=== PATIENT | male | born 1965 | race Caucasian/White ===

== ENCOUNTER 2020-08-21 10:49 | Inpatient (IN) | payer BC, SELFPAY ==
[2020-08-21] VITALS (39 sets, daily range): BP systolic 103–130; BP diastolic 68–85; PULSE 77–111; RESP 10–26; TEMP 36–38.2; O2SAT 89–96
--- NOTE | 2020-08-21 10:45 | RT.EKG_ITS ---
APPROVED REPORT Exam: Resting ECG Patient Location: E HR:108 bpm ECG Measurements Heart Rate [address] 152 P 31 QRSd 96 QRS -73 QT 320 T 35 QTc 431 Conclusion Sinus tachycardia...rate> 99 Inferior infarct, old...Q >35mS, II III aVF Physician: No stemi.
--- NOTE | 2020-08-21 11:06 | DI.CT_ITS ---
EXAM: CT CHEST PE CTA CLINICAL HISTORY: Covid Positive, SOB, Hypoxia. TECHNIQUE: Imaging Protocol: Axial CT angiography was performed with multi-slice acquisition and mu lti-planar and/or 3D reconstructions. CONTRAST MATERIAL: Intravenous: Omnipaque 350 Contrast volume:100 mL COMPARISON: No exams were available for comparison FINDINGS: Tracheobronchial tree: Patent where visualized. Pulmonary parenchyma: Bilateral multifocal ground-glass predominantly peripheral infiltrates are seen in the lungs. No architectural distortion. Pulmonary Arteries: No evidence of filling defect to suggest pulmonary emboli. Mediastinum and Makenna: No dominant adenopathy or fluid collection. Visualized thyroid gland: There are several pulmonary nodules. The largest is in the inferior left l obe and measures 1.4 cm with peripheral calcification. Pleura: No effusion or pneumothorax. Heart: The heart is not dilated. No coronary artery calcifications are seen. No pericardial effusion. Aorta: Thoracic aorta non-dilated. No evidence of dissection. Upper abdomen: Status post cholecystectomy. Soft tissues: Unremarkable. Bones: Normal. IMPRESSION: 1. No evidence of pulmonary embolism, thoracic aortic dissection or aneurysm. 2. Bilateral multifocal ground-glass predominantly peripheral infiltrates. Multifocal pneumonia shou ld be considered. Particularly atypical or viral infections including COVID-19. 3. Several thyroid nodules including a peripherally calcified 1.4 cm nodule in the left lobe. Noneme rgent thyroid ultrasound should be considered for further evaluation. 4. Results of this exam have been verbally communicated with provider. RADIATION DOSE DELIVERED: 473.81mGy.cm Total DLP DATA REPOSITORY: All CT scans at this facility are submitted to the National Radiology Data Registry (NRDR) Dose Index Registry (DIR) with the [employer] (ACR). RADIATION OPTIMIZATION: All CT scans at this facility use at least one of these dose optimization te chniques: automated exposure control; mA and/or kV adjustment per patient size (includes targeted exa ms where dose is matched to clinical indication); or iterative reconstruction.
--- NOTE | 2020-08-21 11:17 | ED.GENADUL_ITS ---
Discharge Plan Disposition Patient Disposition: [facility] INPATIENT Condition: Fair Discharge Details Clinical Impression: COVID-19 Admit Date/Time: 08/21/20 12:57 Admit Provider: Rivka Quintero Attending Provider: Rivka Quintero Primary Care Provider: Unknown,Unknown ED Provider: Arlet Mosley Discharge Data Discharge Date/Time-TO BE ENTERED AT DEPARTURE: 08/21/20 14:15 Medical Decision Making 54-year-old male presents the ER chief complaint of exertional dyspnea, increased weakness, fatigue he was diagnosed with coronavirus 1 week ago on Monday he reports feeling sick for approximately 5 days prior to that. On initial exam he is speaking in full sentences, O2 sat is 89% on room air he is tachycardic at 111, he denies any productive cough, he does endorse diarrhea and loss of appetite. He also endorses a loss of taste or smell. He lives with 2 roommates currently denies any recent travel. He denies any significant past medical history. He does have a surgical history of cholecystectomy. He is a non-smoker. He does endorse alcohol occasionally. CBC shows platelets at 119, lactate 1.7, sodium 134, potassium 3.2, chloride 90, anion gap 7.4, BUN 23, creatinine 1.3 GFR 7.53. Glucose 135, calcium 8.0, AST 148, ALT 96 alk phos is 60. Lactate dehydrogenase 635, C-reactive protein 3.19, albumin 3.3. Procalcitonin 0.1. At this time ferritin is pending. CT results as noted below. COMPARISON: No exams were available for comparison FINDINGS: Tracheobronchial tree: Patent where visualized. Pulmonary parenchyma: Bilateral multifocal ground-glass predominantly peripheral infiltrates are seen in the lungs. No architectural distortion. Pulmonary Arteries: No evidence of filling defect to suggest pulmonary emboli. Mediastinum and Makenna: No dominant adenopathy or fluid collection. Visualized thyroid gland: There are several pulmonary nodules. The largest is in the inferior left lobe and measures 1.4 cm with peripheral calcification. Pleura: No effusion or pneumothorax. Heart: The heart is not dilated. No coronary artery calcifications are seen. No pericardial effusion. Aorta: Thoracic aorta non-dilated. No evidence of dissection. Upper abdomen: Status post cholecystectomy. Soft tissues: Unremarkable. Bones: Normal. IMPRESSION: 1. No evidence of pulmonary embolism, thoracic aortic dissection or aneurysm. 2. Bilateral multifocal ground-glass predominantly peripheral infiltrates. Multifocal pneumonia should be considered. Particularly atypical or viral infections including COVID-19. 3. Several thyroid nodules including a peripherally calcified 1.4 cm nodule in the left lobe. Nonemergent thyroid ultrasound should be considered for further evaluation. 4. Results of this exam have been verbally communicated with provider. 10 mg dexamethasone given, 40 mEq potassium liquid p.o. given. Patient receiving normal saline. 1235: Spoke with Dr. Quintero hospitalist regarding patient admission she verbalized understanding and agrees states that patient for admission for COVID-19 at this time. Patient is on 2 L nasal cannula satting approximately 93%. Discussed plan of care with him, he verbalizes understanding and is in agreement with plan. Dr. Quintero recommend remdesivir, order placed. Patient remained hemodynamically stable and alert and oriented throughout stay. HPI General Mode of arrival: ambulatory . Date/Time Provider Initiated Documentation: 08/21/20 10:49 . Limitations to Documentation: no limitations . Information obtained by: patient . HPI Narrative: 54-year-old male presents the ER chief complaint of exertional dyspnea, increased weakness, fatigue he was diagnosed with coronavirus 1 week ago on Monday he reports feeling sick for approximately 5 days prior to that. On initial exam he is speaking in full sentences, O2 sat is 89% on room air he is tachycardic at 111, he denies any productive cough, he does endorse diarrhea and loss of appetite. He also endorses a loss of taste or smell. He lives with 2 roommates currently denies any recent travel. He denies any significant past medical history. He does have a surgical history of cholecystectomy. He is a non-smoker. He does endorse alcohol occasionally. Related Data Home Medications Medication Instructions Recorded Confirmed cholecalciferol (vitamin D3) 3,000 unit PO DAILY 01/02/14 08/21/20 ranitidine HCl [Zantac] 150 mg PO DAILY 01/02/14 08/21/20 vitamin A palmitate 10,000 units PO DAILY 01/02/14 08/21/20 zinc 50 mg PO DAILY 01/02/14 08/21/20 Allergies Allergy/AdvReac Type Severity Reaction Status Date / Time No Known Allergies Allergy Unverified 08/21/20 11:04 General Stated Complaint: GenMedical OWEN: 3 Review of Systems Narrative: Constitutional: well groomed, normal body habitus, appears c omfortable. Endorses weakness, fatigue. Reports positive weight loss decreased appetite. HEENT: Denies trauma, blurry vision, nasal discharge, sore throat, trouble swallowing. Positive headache. Chest: Denies palpitations, irregular rhythm, hypertension. Respiratory: Denies hemoptysis. Positive shortness of breath. GI: Denies abdominal pain, nausea, vomiting, constipation. Positive diarrhea. : Denies dysuria, hematuria, flank pain, rectal bleeding. Neuro: Denies dizziness, blurry vision, syncope,or facial numbness. Positive weakness. Hematologic: Denies easy bruising, intolerance to heat or cold, hair loss. [facility] Social History Smoking/Tobacco Use Status: Never Smoking risk assessment performed?: Yes Alcohol Intake: current Alcohol Intake frequency: a few times a week Drug use: Never Substance use type: does not use Do you feel safe at home: Yes Do you feel safe in your relationship?: Yes Exam Narrative Exam Narrative: Constitutional: Alert and oriented x3. Appears stated age. Normal body habitus. Head: Normocephalic, no trauma. Eyes: Pupils PERRLA, Red reflex noted, EOM's intact. Eyelids symmetrical without lesions, discharge, or swelling. ENT: Bilateral TM's WNL, External ear normal to inspection, no mastoid TTP, swelling, or erythema, Nasal turbinates WNL, no nasal discharge. Normal dentition, Posterior pharynx WNL, no exudate. Chest: Tachycardic 106- 111,, Normal S1, S2, no murmur auscultated, no rubs no gallops, distal pulses intact. Resp: Lungs diminished to auscultation bilaterally, no wheezes, rales, or rhonchi. Abdomen: Soft, nondistended nontender to palpation all 4 quadrants. Musculoskeletal: Normal gait, 5/5 strength to all four extremities. Skin: No suspicious rashes or lesions. Capillary refill less than 2 sec. Neurologic: Cranial nerves II-XII intact. Alert and oriented x 3. DTR's intact. Hematologic/Lymphatic: No ecchymosis, no lymphadenopathy. Course Vital Signs Vital signs: Vital Signs Temperature 36 C L 08/21/20 11:00 Pulse 111 H 08/21/20 11:00 Respiratory Rate 20 04/09/21 11:00 Blood Pressure 113/85 08/21/20 11:00 Pulse Oximetry 89 L 08/21/20 11:00 Temperature 36 C L 08/21/20 11:00 Pulse 111 H 08/21/20 11:00 Respiratory Rate 20 08/21/20 11:07 Respiratory Effort 08/21/20 11:07 Respiratory Depth Normal 08/21/20 11:07 Respiratory Pattern Normal 08/21/20 11:07 Blood Pressure 113/85 08/21/20 11:00 Blood Pressure Position Sitting 08/21/20 11:00 Pulse Oximetry 92 08/21/20 11:11 Oxygen Delivery Method Nasal Cannula 08/21/20 11:11 Oxygen Flow Rate 2 08/21/20 11:11 Lab/Test Results Lab/Test Results: 08/21/20 11:06 Blood Blood Culture - Pending 08/21/20 11:06 Blood Blood Culture - Pending
[2020-08-21] MEDS: Normal Saline 1,000 ML 1000 ML IV (11:20)
[2020-08-21 11:22] LABS: Lactate 1.7 mmol/L (0.6-1.4)
[2020-08-21 11:25] LABS: Abs Immature Grans 0.03 10^3/uL (0.0-0.06); Absolute Basophil Count 0.01 10^3/uL (0.0-0.2); Absolute Lymphocyte Count 0.79 10^3/uL (1.2-3.4); Absolute Monocyte Count 0.31 10^3/uL (0.1-0.8); Basophils % 0.2; HCT 47.6 % (40.0-50.0); HGB 16.4 g/dL (13.5-17.5); Immature Grans % 0.5; Lymphocytes % 12.3; MCH 31.3 pg (27.0-33.0); MCHC 34.5 % (32.0-36.0); MCV 90.8 fL (80-95); MPV 10.2 fL (8.0-11.0); Monocytes % 4.8; Neutrophils % 82.2; Nucleated RBC 0 %; Platelet Count 119 10^3/uL (130-400); RBC 5.24 10^6/uL (4.36-5.78); RDW 11.9 % (11.8-14.1); WBC 6.44 10^3/uL (4.4-10.8)
[2020-08-21 11:45] LABS: ALT 96 U/L (16-63); AST 148 U/L (15-37); Albumin 3.3 g/dL (3.4-5.0); Alkaline Phosphatase 60 U/L (46-116); Anion Gap 7.4 mmol/L (3-11); BUN 23 mg/dL (7-18); Bilirubin, Total 0.7 mg/dL (0.2-1.0); C-Reactive Protein 3.19 mg/dL (0.0-0.3); CO2 30.6 mmol/L (21.0-32.0); CREATININE 1.3 mg/dL (0.70-1.30); Chloride 96 mmol/L (98-107); Estimated GFR 57.53 (mL/min/1.73m2); Glucose 155 mg/dL (74-106); LDH 635 U/L (85-227); Potassium 3.2 mmol/L (3.5-5.1); Sodium 134 mmol/L (136-145); Total Protein 7.2 g/dL (6.4-8.2); Troponin I < 0.05 ng/mL (<0.06)
[2020-08-21] MEDS: Normal Saline - Diluent 50 ML VIAL IV (11:58)
[2020-08-21] MEDS: Normal Saline Flush 10 ML SYR IVP (11:58)
[2020-08-21 12:07] LABS: Procalcitonin 0.1 ng/mL
[2020-08-21] MEDS: Potassium Chloride Liquid 20 MEQ PKT 40 MEQ PO (12:49)
[2020-08-21] MEDS: Dexamethasone 10 MG/ML VIAL PO (12:49)
[2020-08-21] MEDS: REMDESIVIR 200 MG in Normal Saline 250 ML 250 MG IVPB (13:24)
[2020-08-21] MEDS: Cholecalciferol (Vitamin D3) 1,000 UNIT TAB 4000 UNITS PO (13:38)
[2020-08-21] MEDS: Ascorbic Acid 500 MG TAB 1000 MG PO ×2 (13:38→19:31)
[2020-08-21 13:39] LABS: Ferritin > 2000 ng/mL (26-388)
[2020-08-21] MEDS: Zinc Sulfate 220 MG TAB PO (13:39)
--- NOTE | 2020-08-21 13:45 | RT.EKG_ITS ---
APPROVED REPORT Exam: Resting ECG Patient Location: E HR:92 bpm ECG Measurements Heart Rate 92 AXIS FL 161 P 17 QRSd 93 QRS -62 QT 342 T 13 QTc 422 Conclusion Sinus rhythm...normal P axis, V-rate 60- 99 Inferior infarct, old...Q >35mS, II III aVF Physician: no stemi
[2020-08-21 13:58] LABS: NT-proBNP 26 pg/mL (<300)
[2020-08-21 14:00] LABS: Creatine Kinase 2693 U/L (39-308)
[2020-08-21 14:30] LABS: Troponin I < 0.05 ng/mL (<0.06)
[2020-08-21] MEDS: Enoxaparin 40 MG/0.4 ML SYR SC (15:24)
[2020-08-21] MEDS: Acetaminophen 325 MG TAB 650 MG PO (15:24)
[2020-08-21] MEDS: Ipratropium/Albuterol 4 GM 120 PUFF INH IH ×2 (17:28→19:31)
--- NOTE | 2020-08-21 17:53 | W.PM.HP.N ---
Date of service: 08/21/20 Time of Service: 16:45 Assessment and Plan Assessment and plan (1) Pneumonia due to COVID-19 virus: Status: Acute Assessment and plan: Admit to med surg. Continue decadron/remdesivir initiated in the ED in addition to vitamin C, D, zinc, melatonin, pepcid. Monitor O2 requirement. Atorvastatin contraindicated due to rhabdomyolysis. Consider increasing lovenox dose if Ddimer >2500 (ordered for am). (2) Hypoxia: Status: Acute Assessment and plan: Due to above - as above (3) Rhabdomyolysis: Status: Acute Assessment and plan: Due to COVID-19. Will monitor on IVF. Also monitor kidney function. (4) Dehydration: Status: Acute Assessment and plan: As above (5) Hypokalemia: Status: Acute Assessment and plan: Replete, recheck in am; check mag. (6) Thyroid nodule: Status: Acute Assessment and plan: F/u with US as outpatient (7) DVT prophylaxis: Status: Acute Assessment and plan: SC lovenox 40 mg Q24H (8) Discharge planning issues: Status: Acute Assessment and plan: Full code as verified during our conversation History of Present Illness History of Present Illness Chief Complaint: I just wasn't getting better. Narrative: Mr Adorno is a 54 year old male with no significant PMHx who was diagnosed with COVID-19 10 days ago who presented to [facility] ED today c/o malaise, fatigue, and weakness, to the point that he felt unsteady on his feet. He denied dizziness, endorsed a constant headache, endorsed changes to sense of taste, denies chest pain and shortness of breath, but did endorse a dry cough. He denies nausea, but has had diarrhea x 2 days. He denied body aches. He states his PO intake has been poor due to the changes in his taste. In the ED, his O2 saturation was 89% on room air. PE was ruled out. Hospitalists were asked to admit the patient for covid-19 pneumonia. He was initiated on remdesivir and decadron. Of note, the patient had elevated AST/ALT on his bloodwork with preserved alk phos, and his CPK is elevated, indicating rhabdomyolysis. Review of Systems All systems reviewed & are unremarkable except as noted in HPI and below [facility] Medical History (Updated 08/21/20 @ 18:12 by Rivka Quintero MD) No pertinent past medical history Surgical History (Updated 08/21/20 @ 17:59 by Rivka Quintero MD) S/P cholecystectomy Family History (Updated 08/21/20 @ 18:00 by Rivka Quintero MD) Maternal Aunt Cancer lung cancer in multiple maternal family members all of whom were smokers Father Heart disease Diabetes Hypertension Social History Smoking/Tobacco Use Status: Never Smoking risk assessment performed?: Yes Alcohol Intake: current Alcohol Intake frequency: a few times a week Drug use: Never Substance use type: does not use Do you feel safe at home: Yes Do you feel safe in your relationship?: Yes Meds Home Medications and Allergies Allergies Allergy/AdvReac Type Severity Reaction Status Date / Time No Known Allergies Allergy Unverified 08/21/20 11:04 Home Medications Medication Instructions Recorded Confirmed Type cholecalciferol (vitamin D3) 3,000 unit PO DAILY 01/02/14 08/21/20 History ranitidine HCl [Zantac] 150 mg PO DAILY 01/02/14 08/21/20 History vitamin A palmitate 10,000 units PO DAILY 01/02/14 08/21/20 History zinc 50 mg PO DAILY 01/02/14 08/21/20 History Exam Narrative Exam Narrative: General: Pleasant middle-aged male who looks very tired and dehydrated, A&Ox3, no evidence of dyspnea/tachypnea/cyanosis while laying on R side Neurological: A&Ox3, no focal deficits Psychiatric: Appropriate speech pattern/content Skin: Visible skin intact; dry HEENT: Atraumatic, normocephalic, EOMI, dry MM, no submandibular or cervical lymphadenopathy, no goiter or JVD Cardiovascular: RRR, no m/r/g Lungs: very diminished breath sounds B Gastrointestinal: soft, nontender, nondistended Genitourinary: deferred Extremities: no edema BLE's Results Imaging Additional studies: CTA chest: 1. No evidence of pulmonary embolism, thoracic aortic dissection or aneurysm. 2. Bilateral multifocal ground-glass predominantly peripheral infiltrates. Multifocal pneumonia should be considered. Particularly atypical or viral infections including COVID-19. 3. Several thyroid nodules including a peripherally calcified 1.4 cm nodule in the left lobe. Nonemergent thyroid ultrasound should be considered for further evaluation. Labs Result diagrams: 08/21/20 11:00 08/21/20 11:00 Labs: Laboratory Results - last 24 hr 08/21/20 08/21/20 08/21/20 11:00 11:00 11:00 WBC 6.44 RBC 5.24 Hgb 16.4 Hct 47.6 MCV 90.8 MCH 31.3 MCHC 34.5 RDW 11.9 Plt Count 119 L MPV 10.2 Immature Gran % 0.5 Neutrophils % 82.2 Lymphocytes % 12.3 Monocytes % 4.8 Eosinophils % 0.0 Basophils % 0.2 Nucleated RBC % 0 Absolute Neutrophils 5.30 Absolute Lymphocytes 0.79 L Absolute Monocytes 0.31 Absolute Eosinophils 0.00 Absolute Basophils 0.01 VBG Lactate 1.7 H Sodium 134 L Potassium 3.2 L Chloride 96 L Carbon Dioxide 30.6 Anion Gap 7.4 BUN 23 H Creatinine 1.3 Estimated GFR/1.73 m2 57.53 Glucose 155 H Calcium 8.0 L Ferritin > 2000 H Total Bilirubin 0.7 AST 148 H ALT 96 H Alkaline Phosphatase 60 Lactate Dehydrogenase 635 H Creatine Kinase Troponin I < 0.05 C-Reactive Protein 3.19 H NT-Pro-B Natriuret Pep Total Protein 7.2 Albumin 3.3 L Procalcitonin 0.1 08/21/20 08/21/20 11:00 14:00 WBC RBC Hgb Hct MCV MCH MCHC RDW Plt Count MPV Immature Gran % Neutrophils % Lymphocytes % Monocytes % Eosinophils % Basophils % Nucleated RBC % Absolute Neutrophils Absolute Lymphocytes Absolute Monocytes Absolute Eosinophils Absolute Basophils VBG Lactate Sodium Potassium Chloride Carbon Dioxide Anion Gap BUN Creatinine Estimated GFR/1.73 m2 Glucose Calcium Ferritin Total Bilirubin AST ALT Alkaline Phosphatase Lactate Dehydrogenase Creatine Kinase 2693 H Troponin I < 0.05 C-Reactive Protein NT-Pro-B Natriuret Pep 26 Total Protein Albumin Procalcitonin Last Vital Signs Temp 38.2 C H 08/21/20 15:25 Pulse 90 08/21/20 15:25 Resp 22 08/21/20 15:25 BP 111/72 08/21/20 15:25 Pulse Ox 93 08/21/20 15:25 COVID-19 Screening Have you, or household traveled for leisure in last 14 days?: No Had IN PERSON contact w/suspected or confirmed C-19 person: Yes
[2020-08-21] MEDS: Normal Saline 1,000 ML 150 ML IV (18:20)
[2020-08-21] MEDS: Famotidine 20 MG TAB PO (19:31)
[2020-08-21] MEDS: Melatonin 3 MG TAB PO (21:23)
[2020-08-22] VITALS (13 sets, daily range): BP systolic 99–130; BP diastolic 64–85; PULSE 61–90; RESP 18–200; TEMP 36.3–37.1; O2SAT 91–94
[2020-08-22] MEDS: Acetaminophen 325 MG TAB 650 MG PO ×3 (00:47→23:04)
[2020-08-22] MEDS: Normal Saline 1,000 ML 150 ML IV ×4 (01:57→23:06)
[2020-08-22 07:19] LABS: Lactate 1.2 mmol/L (0.6-1.4)
[2020-08-22 07:29] LABS: Abs Immature Grans 0.02 10^3/uL (0.0-0.06); Absolute Lymphocyte Count 0.65 10^3/uL (1.2-3.4); Absolute Monocyte Count 0.42 10^3/uL (0.1-0.8); Absolute Neutrophil Count 5.07 10^3/uL (1.2-6.7); HCT 42.1 % (40.0-50.0); HGB 14.3 g/dL (13.5-17.5); Immature Grans % 0.3; Lymphocytes % 10.6; MCH 31.6 pg (27.0-33.0); MCV 93.1 fL (80-95); MPV 9.5 fL (8.0-11.0); Monocytes % 6.8; Neutrophils % 82.3; Nucleated RBC 0 %; Platelet Count 127 10^3/uL (130-400); RBC 4.52 10^6/uL (4.36-5.78); RDW 12.1 % (11.8-14.1); RDW-SD 42.1 fL; WBC 6.16 10^3/uL (4.4-10.8)
[2020-08-22 08:02] LABS: D-Dimer 1488 ng/mlFEU (<500)
[2020-08-22 08:15] LABS: ALT 85 U/L (16-63); AST 113 U/L (15-37); Albumin 2.7 g/dL (3.4-5.0); Alkaline Phosphatase 49 U/L (46-116); Anion Gap 3.3 mmol/L (3-11); BUN 21 mg/dL (7-18); Bilirubin, Direct 0.2 mg/dL (0.0-0.2); Bilirubin, Total 0.5 mg/dL (0.2-1.0); C-Reactive Protein 3.74 mg/dL (0.0-0.3); CO2 30.7 mmol/L (21.0-32.0); Calcium 7.9 mg/dL (8.5-10.1); Chloride 103 mmol/L (98-107); Glucose 165 mg/dL (74-106); Potassium 4.2 mmol/L (3.5-5.1); Sodium 137 mmol/L (136-145); Total Protein 6.2 g/dL (6.4-8.2); Troponin I < 0.05 ng/mL (<0.06)
[2020-08-22 08:17] LABS: Creatine Kinase 2285 U/L (39-308); Ferritin 1792 ng/mL (26-388)
[2020-08-22] MEDS: Cholecalciferol (Vitamin D3) 1,000 UNIT TAB 4000 UNITS PO (08:28)
[2020-08-22] MEDS: Famotidine 20 MG TAB PO ×2 (08:28→20:33)
[2020-08-22] MEDS: Dexamethasone 10 MG/ML VIAL 6 MG IVP (08:29)
[2020-08-22] MEDS: Zinc Sulfate 220 MG TAB PO (08:29)
[2020-08-22] MEDS: Ascorbic Acid 500 MG TAB 1000 MG PO ×2 (08:29→20:33)
[2020-08-22] MEDS: Ipratropium/Albuterol 4 GM 120 PUFF INH IH ×4 (08:29→20:33)
--- NOTE | 2020-08-22 09:11 | PDOC.CMIN ---
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 He is independent at baseline in the community. CURRENT FUNCTIONAL STATUS:: Shefali is admitted to M/S covid unit and is being treated with decadron/remdesivir, vitamins and O2. Has patient been provided with info about the portal/API?: No Did the patient sign up for the portal?: No CODE STATUS:: Full Code INSURANCE COVERAGE / FINANCIAL ISSUES:: BC/BS. [facility] CURRENT HOME/COMMUNITY SERVICES/EQUIPMENT:: None currently. PRIMARY CARE PHYSICIAN:: None currently. POTENTIAL DISCHARGE NEEDS:: Follow up appointment, PCP attachment. PATIENT/FAMILY EDUCATION NEEDS:: Review discharge instructions, discuss Ask Me Three. ANTICIPATED BARRIERS TO DISCHARGE:: None identified. PLAN:: Anticipate Shefali will return home when ready per MD. He will be offered PCP attachment. Transport will depend on covid exposure considerations. CM continues to follow.
--- NOTE | 2020-08-22 11:35 | W.PM.HP.N ---
Date of service: 08/22/20 Time of Service: 11:35 [facility] Medical History (Updated 08/21/20 @ 18:12 by Rivka Quintero MD) No pertinent past medical history Surgical History (Updated 08/21/20 @ 17:59 by Rivka Quintero MD) S/P cholecystectomy Family History (Updated 08/21/20 @ 18:00 by Rivka Quintero MD) Maternal Aunt Cancer lung cancer in multiple maternal family members all of whom were smokers Father Heart disease Diabetes Hypertension Social History Smoking/Tobacco Use Status: Never Smoking risk assessment performed?: Yes Alcohol Intake: current Alcohol Intake frequency: a few times a week Drug use: Never Substance use type: does not use Do you feel safe at home: Yes Do you feel safe in your relationship?: Yes Meds Home Medications and Allergies Allergies Allergy/AdvReac Type Severity Reaction Status Date / Time No Known Allergies Allergy Unverified 08/21/20 11:04 Home Medications Medication Instructions Recorded Confirmed Type cholecalciferol (vitamin D3) 3,000 unit PO DAILY 01/02/14 08/21/20 History ranitidine HCl [Zantac] 150 mg PO DAILY 01/02/14 08/21/20 History vitamin A palmitate 10,000 units PO DAILY 01/02/14 08/21/20 History zinc 50 mg PO DAILY 01/02/14 08/21/20 History Results Labs Result diagrams: 08/22/20 07:10 08/22/20 07:10 Labs: Laboratory Results - last 24 hr 08/21/20 08/21/20 08/21/20 11:00 11:00 11:00 WBC RBC Hgb Hct MCV MCH MCHC RDW Plt Count MPV Immature Gran % Neutrophils % Lymphocytes % Monocytes % Eosinophils % Basophils % Nucleated RBC % Absolute Neutrophils Absolute Lymphocytes Absolute Monocytes Absolute Eosinophils Absolute Basophils D-Dimer VBG Lactate Sodium 134 L Potassium 3.2 L Chloride 96 L Carbon Dioxide 30.6 Anion Gap 7.4 BUN 23 H Creatinine 1.3 Estimated GFR/1.73 m2 57.53 Glucose 155 H Calcium 8.0 L Magnesium Ferritin > 2000 H Total Bilirubin 0.7 Conjugated Bilirubin AST 148 H ALT 96 H Alkaline Phosphatase 60 Lactate Dehydrogenase 635 H Creatine Kinase 2693 H Troponin I < 0.05 C-Reactive Protein 3.19 H NT-Pro-B Natriuret Pep 26 Total Protein 7.2 Albumin 3.3 L Procalcitonin 0.1 08/21/20 08/22/20 08/22/20 14:00 07:10 07:10 WBC RBC Hgb Hct MCV MCH MCHC RDW Plt Count MPV Immature Gran % Neutrophils % Lymphocytes % Monocytes % Eosinophils % Basophils % Nucleated RBC % Absolute Neutrophils Absolute Lymphocytes Absolute Monocytes Absolute Eosinophils Absolute Basophils D-Dimer VBG Lactate 1.2 Sodium 137 Potassium 4.2 D Chloride 103 Carbon Dioxide 30.7 Anion Gap 3.3 BUN 21 H Creatinine 1.0 Estimated GFR/1.73 m2 >= 60.00 Glucose 165 H Calcium 7.9 L Magnesium 2.0 Ferritin 1792 H Total Bilirubin 0.5 Conjugated Bilirubin 0.2 AST 113 H ALT 85 H Alkaline Phosphatase 49 Lactate Dehydrogenase Creatine Kinase 2285 H Troponin I < 0.05 < 0.05 C-Reactive Protein 3.74 H NT-Pro-B Natriuret Pep Total Protein 6.2 L Albumin 2.7 L Procalcitonin 08/22/20 08/22/20 07:10 07:10 WBC 6.16 RBC 4.52 Hgb 14.3 D Hct 42.1 MCV 93.1 MCH 31.6 MCHC 34.0 RDW 12.1 Plt Count 127 L MPV 9.5 Immature Gran % 0.3 Neutrophils % 82.3 Lymphocytes % 10.6 Monocytes % 6.8 Eosinophils % 0.0 Basophils % 0.0 Nucleated RBC % 0 Absolute Neutrophils 5.07 Absolute Lymphocytes 0.65 L Absolute Monocytes 0.42 Absolute Eosinophils 0.00 Absolute Basophils 0.00 D-Dimer 1488 H VBG Lactate Sodium Potassium Chloride Carbon Dioxide Anion Gap BUN Creatinine Estimated GFR/1.73 m2 Glucose Calcium Magnesium Ferritin Total Bilirubin Conjugated Bilirubin AST ALT Alkaline Phosphatase Lactate Dehydrogenase Creatine Kinase Troponin I C-Reactive Protein NT-Pro-B Natriuret Pep Total Protein Albumin Procalcitonin Last Vital Signs Temp 36.8 C 08/22/20 08:45 Pulse 90 08/22/20 08:45 Resp 20 08/22/20 08:45 BP 130/72 08/22/20 08:45 Pulse Ox 92 08/22/20 08:45 COVID-19 Screening Have you, or household traveled for leisure in last 14 days?: No Had IN PERSON contact w/suspected or confirmed C-19 person: Yes
--- NOTE | 2020-08-22 11:36 | W.PM.PROGNOT ---
Date of Service Date of service: 08/22/20 Time of Service: 11:36 Assessment and Plan Assessment and plan (1) Rhabdomyolysis: Status: Acute Assessment and plan: CK has improved. Cont IV hydration. Monitor Qualifiers: Rhabdomyolysis type: non-traumatic Qualified Code(s): M62.82 - Rhabdomyolysis (2) Pneumonia due to COVID-19 virus: Status: Acute Assessment and plan: Cont remdesivir and decadron. On Vitamin C, D, zinc, pepecid and melatonin. Now on 3 L supplemental O2 per NC; previously on 2L. Cont AC with DVT prophylaxis dosing of Lovenox; D-dimer 1488. (3) Hypoxia: Status: Acute Assessment and plan: D/T Covid Cont to monitor. (4) DVT prophylaxis: Status: Acute Assessment and plan: Lovenox 40 mg SC Q24H. Subjective Subjective Patient reports: no new complaints and afebrile; denies diarrhea, nausea and vomiting Interval history since last seen: He states he feels marginally better overall. Occasional cough w/o sputum. Exam Const General: cooperative and no acute distress Nutritional Appearance: average body habitus Orientation: alert and oriented x3 HENMT Head: normocephalic and atraumatic Eyes Sclera: sclerae normal Pupils: PERRL Resp Effort & Inspection: normal respiratory effort Auscultation: clear to auscultation bilaterally and diminished lung sounds Cardio Rate: regular rate Rhythm: regular rhythm Heart Sounds: S1 normal and S2 normal GI Palpation: soft and nontender Skin General skin exam: no rashes or lesions noted Neuro General: moves all extremities Cognition: normal cognition Speech: speech normal Extrem General: no pedal edema and no calf tenderness Objective Last Vital Signs Temp 36.8 C 08/22/20 08:45 Pulse 90 08/22/20 08:45 Resp 20 08/22/20 08:45 BP 130/72 08/22/20 08:45 Pulse Ox 92 08/22/20 08:45 Laboratory Results - last 24 hr 08/21/20 08/21/20 08/21/20 11:00 11:00 11:00 WBC RBC Hgb Hct MCV MCH MCHC RDW Plt Count MPV Immature Gran % Neutrophils % Lymphocytes % Monocytes % Eosinophils % Basophils % Nucleated RBC % Absolute Neutrophils Absolute Lymphocytes Absolute Monocytes Absolute Eosinophils Absolute Basophils D-Dimer VBG Lactate Sodium 134 L Potassium 3.2 L Chloride 96 L Carbon Dioxide 30.6 Anion Gap 7.4 BUN 23 H Creatinine 1.3 Estimated GFR/1.73 m2 57.53 Glucose 155 H Calcium 8.0 L Magnesium Ferritin > 2000 H Total Bilirubin 0.7 Conjugated Bilirubin AST 148 H ALT 96 H Alkaline Phosphatase 60 Lactate Dehydrogenase 635 H Creatine Kinase 2693 H Troponin I < 0.05 C-Reactive Protein 3.19 H NT-Pro-B Natriuret Pep 26 Total Protein 7.2 Albumin 3.3 L Procalcitonin 0.1 08/21/20 08/22/20 08/22/20 14:00 07:10 07:10 WBC RBC Hgb Hct MCV MCH MCHC RDW Plt Count MPV Immature Gran % Neutrophils % Lymphocytes % Monocytes % Eosinophils % Basophils % Nucleated RBC % Absolute Neutrophils Absolute Lymphocytes Absolute Monocytes Absolute Eosinophils Absolute Basophils D-Dimer VBG Lactate 1.2 Sodium 137 Potassium 4.2 D Chloride 103 Carbon Dioxide 30.7 Anion Gap 3.3 BUN 21 H Creatinine 1.0 Estimated GFR/1.73 m2 >= 60.00 Glucose 165 H Calcium 7.9 L Magnesium 2.0 Ferritin 1792 H Total Bilirubin 0.5 Conjugated Bilirubin 0.2 AST 113 H ALT 85 H Alkaline Phosphatase 49 Lactate Dehydrogenase Creatine Kinase 2285 H Troponin I < 0.05 < 0.05 C-Reactive Protein 3.74 H NT-Pro-B Natriuret Pep Total Protein 6.2 L Albumin 2.7 L Procalcitonin 08/22/20 08/22/20 07:10 07:10 WBC 6.16 RBC 4.52 Hgb 14.3 D Hct 42.1 MCV 93.1 MCH 31.6 MCHC 34.0 RDW 12.1 Plt Count 127 L MPV 9.5 Immature Gran % 0.3 Neutrophils % 82.3 Lymphocytes % 10.6 Monocytes % 6.8 Eosinophils % 0.0 Basophils % 0.0 Nucleated RBC % 0 Absolute Neutrophils 5.07 Absolute Lymphocytes 0.65 L Absolute Monocytes 0.42 Absolute Eosinophils 0.00 Absolute Basophils 0.00 D-Dimer 1488 H VBG Lactate Sodium Potassium Chloride Carbon Dioxide Anion Gap BUN Creatinine Estimated GFR/1.73 m2 Glucose Calcium Magnesium Ferritin Total Bilirubin Conjugated Bilirubin AST ALT Alkaline Phosphatase Lactate Dehydrogenase Creatine Kinase Troponin I C-Reactive Protein NT-Pro-B Natriuret Pep Total Protein Albumin Procalcitonin
[2020-08-22] MEDS: Enoxaparin 40 MG/0.4 ML SYR SC (17:00)
[2020-08-22] MEDS: Melatonin 3 MG TAB PO (21:35)
[2020-08-23] VITALS (10 sets, daily range): BP systolic 108–130; BP diastolic 73–81; PULSE 53–85; RESP 16–20; TEMP 36.2–36.9; O2SAT 88–97
[2020-08-23] MEDS: Normal Saline 1,000 ML 150 ML IV ×3 (05:49→22:44)
[2020-08-23 07:06] LABS: Abs Immature Grans 0.07 10^3/uL (0.0-0.06); Absolute Lymphocyte Count 0.68 10^3/uL (1.2-3.4); Absolute Neutrophil Count 6.32 10^3/uL (1.2-6.7); HCT 40.2 % (40.0-50.0); HGB 13.6 g/dL (13.5-17.5); Immature Grans % 0.9; Lymphocytes % 8.9; MCH 31.7 pg (27.0-33.0); MCHC 33.8 % (32.0-36.0); MCV 93.7 fL (80-95); Monocytes % 7.8; Neutrophils % 82.4; Nucleated RBC 0 %; Platelet Count 146 10^3/uL (130-400); RBC 4.29 10^6/uL (4.36-5.78); RDW 12.2 % (11.8-14.1); RDW-SD 42.5 fL; WBC 7.67 10^3/uL (4.4-10.8)
[2020-08-23 07:17] LABS: ALT 82 U/L (16-63); AST 85 U/L (15-37); Albumin 2.5 g/dL (3.4-5.0); Alkaline Phosphatase 44 U/L (46-116); Anion Gap 6.1 mmol/L (3-11); BUN 20 mg/dL (7-18); Bilirubin, Total 0.4 mg/dL (0.2-1.0); CO2 28.9 mmol/L (21.0-32.0); CREATININE 0.9 mg/dL (0.70-1.30); Calcium 7.5 mg/dL (8.5-10.1); Chloride 107 mmol/L (98-107); Glucose 172 mg/dL (74-106); Potassium 4.2 mmol/L (3.5-5.1); Sodium 142 mmol/L (136-145); Total Protein 5.7 g/dL (6.4-8.2)
[2020-08-23 07:34] LABS: Creatine Kinase 1275 U/L (39-308)
[2020-08-23] MEDS: Ipratropium/Albuterol 4 GM 120 PUFF INH IH ×4 (08:05→20:37)
[2020-08-23] MEDS: Famotidine 20 MG TAB PO ×2 (08:43→20:37)
[2020-08-23] MEDS: Ascorbic Acid 500 MG TAB 1000 MG PO ×2 (08:43→20:36)
[2020-08-23] MEDS: Cholecalciferol (Vitamin D3) 1,000 UNIT TAB 4000 UNITS PO (08:43)
[2020-08-23] MEDS: Dexamethasone 10 MG/ML VIAL 6 MG IVP (08:43)
[2020-08-23] MEDS: Zinc Sulfate 220 MG TAB PO (08:44)
--- NOTE | 2020-08-23 10:50 | W.PM.PROGNOT ---
Date of Service Date of service: 08/23/20 Time of Service: 11:17 Assessment and Plan Assessment and plan (1) Rhabdomyolysis: Status: Acute Assessment and plan: CK improved. Decrease IV fluid rate. Qualifiers: Rhabdomyolysis type: non-traumatic Qualified Code(s): M62.82 - Rhabdomyolysis (2) Hypoxia: Status: Acute Assessment and plan: Secondary to Covid PNA Had been stable with O2 saturations in the low 90's on 2-3 leaders per NC. At 8:45 this AM, O2 saturations noted to be 88%; he had been up / showered and supplemental O2 rate had been lowered. Back to saturation of 94% on 3L. (3) Pneumonia due to COVID-19 virus: Status: Acute Assessment and plan: Cont Remdesivir and Decadron. Cont Vit D, C, zinc, pepcid, melatonin. Supplemental O2 (4) Discharge planning issues: Status: Acute Assessment and plan: Likely home when improving and stable. Subjective Subjective Patient reports: no new complaints, tolerating a regular diet (sense of taste mildly improved), shortness of breath (mild) and afebrile; denies diarrhea, nausea and vomiting Exam Const General: cooperative and no acute distress Nutritional Appearance: average body habitus Orientation: alert and oriented x3 Resp Effort & Inspection: normal respiratory effort Auscultation: clear to auscultation bilaterally Cardio Rate: regular rate Rhythm: regular rhythm Heart Sounds: S1 normal and S2 normal Neuro General: no focal motor deficits Cognition: normal cognition Speech: speech normal Extrem General: no pedal edema and no calf tenderness Psych Appearance: grossly normal Mental Status: mental status grossly normal Speech and Movement: speech and movement normal Affect: normal affect Objective Last Vital Signs Temp 36.4 C L 08/23/20 08:45 Pulse 77 08/23/20 08:45 Resp 20 08/23/20 08:45 BP 114/73 08/23/20 08:45 Pulse Ox 88 L 08/23/20 08:45 Laboratory Results - last 24 hr 08/23/20 08/23/20 08/23/20 06:38 06:38 06:38 WBC 7.67 RBC 4.29 L Hgb 13.6 Hct 40.2 MCV 93.7 MCH 31.7 MCHC 33.8 RDW 12.2 Plt Count 146 MPV 10.0 Immature Gran % 0.9 Neutrophils % 82.4 Lymphocytes % 8.9 Monocytes % 7.8 Eosinophils % 0.0 Basophils % 0.0 Nucleated RBC % 0 Absolute Neutrophils 6.32 Absolute Lymphocytes 0.68 L Absolute Monocytes 0.60 Absolute Eosinophils 0.00 Absolute Basophils 0.00 Sodium 142 Potassium 4.2 Chloride 107 Carbon Dioxide 28.9 Anion Gap 6.1 BUN 20 H Creatinine 0.9 Estimated GFR/1.73 m2 >= 60.00 Glucose 172 H Calcium 7.5 L Total Bilirubin 0.4 AST 85 H ALT 82 H Alkaline Phosphatase 44 L Creatine Kinase 1275 H Total Protein 5.7 L Albumin 2.5 L
--- NOTE | 2020-08-23 12:18 | PDOC.CMPRO ---
- If Service Date Differs Date of service: 08/23/20 Time of Service: 12:19 Care Management Progress Note S/O: Shefali remains on M/S in the Covid unit at this time. Per MD he is making improvements and will discharge to home when medically ready. CM continues to follow. A: 54 year old male admitted to [facility] 08/21/20 for Covid 19 Pnemonia with hypoxia, syncope P: Anticipate Shefali will return home when ready per MD. He will be offered PCP attachment. Transport will depend on covid exposure considerations. CM continues to follow.
[2020-08-23] MEDS: Enoxaparin 40 MG/0.4 ML SYR SC (17:22)
[2020-08-23] MEDS: Acetaminophen 325 MG TAB 650 MG PO (22:42)
[2020-08-23] MEDS: Melatonin 3 MG TAB PO (22:43)
[2020-08-24] VITALS (16 sets, daily range): BP systolic 116–144; BP diastolic 72–91; PULSE 58–79; RESP 12–28; TEMP 36.4–36.7; O2SAT 91–97
[2020-08-24] MEDS: Normal Saline 1,000 ML 100 ML IV (06:19)
[2020-08-24 07:25] LABS: ALT 142 U/L (16-63); AST 138 U/L (15-37); Albumin 2.5 g/dL (3.4-5.0); Alkaline Phosphatase 46 U/L (46-116); Anion Gap 6.3 mmol/L (3-11); BUN 20 mg/dL (7-18); Bilirubin, Total 0.5 mg/dL (0.2-1.0); C-Reactive Protein 0.88 mg/dL (0.0-0.3); CO2 28.7 mmol/L (21.0-32.0); CREATININE 0.9 mg/dL (0.70-1.30); Calcium 7.7 mg/dL (8.5-10.1); Chloride 108 mmol/L (98-107); Glucose 163 mg/dL (74-106); Potassium 4.4 mmol/L (3.5-5.1); Sodium 143 mmol/L (136-145); Total Protein 5.6 g/dL (6.4-8.2)
[2020-08-24] MEDS: Ipratropium/Albuterol 4 GM 120 PUFF INH IH ×4 (08:02→20:06)
[2020-08-24] MEDS: Famotidine 20 MG TAB PO ×2 (08:11→20:06)
[2020-08-24] MEDS: Acetaminophen 325 MG TAB 650 MG PO (08:11)
[2020-08-24] MEDS: Zinc Sulfate 220 MG TAB PO (08:11)
[2020-08-24] MEDS: Ascorbic Acid 500 MG TAB 1000 MG PO ×2 (08:11→20:06)
[2020-08-24] MEDS: Dexamethasone 10 MG/ML VIAL 6 MG IVP (08:11)
[2020-08-24] MEDS: Cholecalciferol (Vitamin D3) 1,000 UNIT TAB 4000 UNITS PO (08:11)
[2020-08-24] MEDS: Normal Saline Flush 10 ML SYR IVP ×2 (08:12→20:06)
[2020-08-24 08:51] LABS: Vitamin D 25 Total 12.4 ng/mL (30-100)
--- NOTE | 2020-08-24 09:09 | CMPROGNOTE_ITS ---
Care Management Progress Note S/O: Shefali remains on M/S in the Covid unit at this time. Per MD he is making improvements and will discharge to home when medically ready. CM continues to follow. A: 54 year old male admitted to [facility] 08/21/20 for Covid 19 Pnemonia with hypoxia, syncope P: Anticipate Shefali will return home when ready per MD. He will be offered PCP attachment. Transport will depend on covid exposure considerations. CM continues to follow.
--- NOTE | 2020-08-24 13:12 | W.PM.PROGNOT ---
Date of Service Date of service: 08/24/20 Time of Service: 09:18 Assessment and Plan Assessment and plan (1) DVT prophylaxis: Status: Acute Assessment and plan: Cont Lovenox SQ (2) Rhabdomyolysis: Status: Acute Assessment and plan: CK was trending downward. His oral fluid intake has improved. Decrease IV NS to 50ml/hr Qualifiers: Rhabdomyolysis type: non-traumatic Qualified Code(s): M62.82 - Rhabdomyolysis (3) Pneumonia due to COVID-19 virus: Status: Acute Assessment and plan: Cont Decadron and Remdesivir. Cont Vit D, C, zinc, pepcid, melatonin. Supplemental O2 needs improving; now on 1L NC Cont COVID precautions. Subjective Subjective Patient reports: no new complaints, feels better (marginally), shortness of breath (With ambulation, not at rest.), afebrile and other; denies diarrhea, nausea and vomiting Interval history since last seen: Appetite has marginally improved. Exam Narrative Exam Narrative: Sitting in chair. Const General: cooperative and no acute distress Nutritional Appearance: average body habitus Orientation: alert and oriented x3 Resp Effort & Inspection: normal respiratory effort Auscultation: clear to auscultation bilaterally Cardio Rate: regular rate Rhythm: regular rhythm Heart Sounds: S1 normal and S2 normal GI Palpation: soft and nontender Skin General skin exam: no rashes or lesions noted Extrem General: no clubbing, cyanosis or edema and no calf tenderness Objective Last Vital Signs Temp 36.6 C 08/24/20 12:06 Pulse 60 08/24/20 12:06 Resp 18 08/24/20 12:35 BP 137/84 08/24/20 12:06 Pulse Ox 94 08/24/20 12:44 Laboratory Results - last 24 hr 08/22/20 08/24/20 07:10 06:50 Sodium 143 Potassium 4.4 Chloride 108 H Carbon Dioxide 28.7 Anion Gap 6.3 BUN 20 H Creatinine 0.9 Estimated GFR/1.73 m2 >= 60.00 Glucose 163 H Calcium 7.7 L Total Bilirubin 0.5 AST 138 H ALT 142 H Alkaline Phosphatase 46 C-Reactive Protein 0.88 H Total Protein 5.6 L Albumin 2.5 L 25-OH Vitamin D Total 12.4 L
--- NOTE | 2020-08-24 15:27 | W.NUTRFU ---
Date of service: 08/24/20 Time of Service: 15:27 Nutritional Follow up NOTE: 54 year old male admitted with COVID positive PNA. Following regular meal plan with excellent intake. Not at nutritional risk. Will continue to follow. Time Spent in Nutritional Counseling and Treatment: 0
--- NOTE | 2020-08-24 15:45 | PHA.REVIEW ---
Pharmacy Admission Review - Admission Clinical Review (Last Updated 08/21/20 @ 17:59 by Rivka Quintero MD) Hypokalemia (Acute) Discharge planning issues (Acute) DVT prophylaxis (Acute) Thyroid nodule (Acute) Dehydration (Acute) Rhabdomyolysis (Acute) Hypoxia (Acute) Pneumonia due to COVID-19 virus (Acute) COVID-19 (Acute) No Known Allergies Allergy (Unverified 08/21/20 11:04) Height 6 ft 1 in Weight 92.986 kg - Renal Dosing Renal Dosing: BUN 20 mg/dL (7-18) H 08/24/20 06:50 Creatinine 0.9 mg/dL (0.70-1.30) 08/24/20 06:50 Medications needing adjustments: Reviewed (Crcl ~106 mL/min current meds okay) - Anticoagulation Anticoagulation: Hgb 13.6 g/dL (13.5-17.5) 08/23/20 06:38 Hct 40.2 % (40.0-50.0) 08/23/20 06:38 Plt Count 146 10^3/uL (130-400) 08/23/20 06:38 Creatinine 0.9 mg/dL (0.70-1.30) 08/24/20 06:50 DVT Prohphylaxis: Reviewed Medications: Enoxaparin Therapeutic Anticoagulation: N/A - Opiate Usage Evaluate Pain Scale/Pains Meds: N/A - Relevant Labs Sodium 143 mmol/L (136-145) 08/24/20 06:50 Potassium 4.4 mmol/L (3.5-5.1) 08/24/20 06:50 Chloride 108 mmol/L (98-107) H 08/24/20 06:50 Magnesium 2.0 mg/dL (1.8-2.4) 08/22/20 07:10 C-Reactive Protein 0.88 mg/dL (0.0-0.3) H 08/24/20 06:50 Electrolytes, C-Reactive P, ESR: Reviewed - DM Control DM Control: Glucose 163 mg/dL (74-106) H 08/24/20 06:50 Insulin Dosing: Intervened (BG has been elevated so far this admission, no A1c on file. Will mention to provider.) - Heart Failure/NC Heart Failure/NC: Troponin I < 0.05 ng/mL (<0.06) 08/22/20 07:10 NT-Pro-B Natriuret Pep 26 pg/mL (<300) 08/21/20 11:00 EF%, STEF's, B-Blockers, Diuretics: Reviewed - BP Control BP Control: Blood Pressure 137/84 Blood Pressure 133/83 Blood Pressure 122/77 If elevated: N/A - Qtc Review If Elevated: N/A (QTc 422 on admission) - IV to PO Switch IV Medications: Reviewed - Home Meds Home Med List reviewed: Reviewed Relevent Home Meds Not ordered & why?: ranitidine (withdrawn from [place] market), vitamin A palmiate - Current meds Current Medication Order Review: Reviewed (Continue to watch VS, BG, LFTs, and for med changes.)
[2020-08-24] MEDS: Enoxaparin 40 MG/0.4 ML SYR SC (17:03)
[2020-08-24] MEDS: Normal Saline 1,000 ML 75 ML IV (20:59)
[2020-08-24] MEDS: Melatonin 3 MG TAB PO (21:47)
[2020-08-25] VITALS (9 sets, daily range): BP systolic 116–138; BP diastolic 70–90; PULSE 45–85; RESP 13–20; TEMP 36.4–36.9; O2SAT 90–97
[2020-08-25] MEDS: Acetaminophen 325 MG TAB 650 MG PO ×2 (04:35→21:35)
[2020-08-25 07:28] LABS: HCT 40.3 % (40.0-50.0); HGB 13.7 g/dL (13.5-17.5); MCH 31.2 pg (27.0-33.0); MCV 91.8 fL (80-95); MPV 9.7 fL (8.0-11.0); Platelet Count 170 10^3/uL (130-400); RBC 4.39 10^6/uL (4.36-5.78); RDW 12.1 % (11.8-14.1); RDW-SD 41.2 fL; WBC 7.88 10^3/uL (4.4-10.8)
[2020-08-25] MEDS: Zinc Sulfate 220 MG TAB PO (08:18)
[2020-08-25] MEDS: Ascorbic Acid 500 MG TAB 1000 MG PO ×2 (08:18→19:25)
[2020-08-25] MEDS: Famotidine 20 MG TAB PO ×2 (08:18→19:25)
[2020-08-25] MEDS: Normal Saline Flush 10 ML SYR IVP (08:18)
[2020-08-25] MEDS: Dexamethasone 10 MG/ML VIAL 6 MG IVP (08:18)
[2020-08-25] MEDS: Cholecalciferol (Vitamin D3) 1,000 UNIT TAB 4000 UNITS PO (08:18)
[2020-08-25 10:13] LABS: ALT 248 U/L (16-63); AST 130 U/L (15-37); Albumin 2.6 g/dL (3.4-5.0); Alkaline Phosphatase 48 U/L (46-116); BUN 18 mg/dL (7-18); Bilirubin, Direct 0.2 mg/dL (0.0-0.2); Bilirubin, Total 0.6 mg/dL (0.2-1.0); C-Reactive Protein 0.54 mg/dL (0.0-0.3); Calcium 7.9 mg/dL (8.5-10.1); Chloride 108 mmol/L (98-107); Creatine Kinase 283 U/L (39-308); Glucose 170 mg/dL (74-106); Potassium 4.3 mmol/L (3.5-5.1); Sodium 141 mmol/L (136-145); Total Protein 5.6 g/dL (6.4-8.2)
[2020-08-25] MEDS: Ipratropium/Albuterol 4 GM 120 PUFF INH IH ×3 (10:27→19:25)
[2020-08-25 10:31] LABS: D-Dimer 654 ng/mlFEU (<500)
[2020-08-25 10:33] LABS: Procalcitonin < 0.1 ng/mL
--- NOTE | 2020-08-25 10:40 | CMPROGNOTE_ITS ---
- If Service Date Differs Date of service: 08/25/20 Time of Service: 10:40 Care Management Progress Note S/O: Shefali remains on M/S in the Covid unit at this time. He had been making improvements but today his oxygen requirements increased from 1L to 2L and per MD, he is reporting mental fog and purulent nasal secretions. He desats with activity per nursing and is also having some diarrhea today. CM attempted to reach Shefali by phone but was unsuccessful. CM continues to follow. A: 54 year old male admitted to [facility] 08/21/20 for Covid 19 Pnemonia with hypoxia, syncope P: Anticipate Shefali will return home when ready per MD. He will be offered PCP attachment. Transport will depend on covid exposure considerations. CM continues to follow and will support patient and assess for discharge planning concerns..
[2020-08-25 11:02] LABS: Ferritin 1238 ng/mL (26-388)
[2020-08-25 11:17] LABS: NT-proBNP 1482 pg/mL (<300)
[2020-08-25] MEDS: Furosemide 20 MG/2 ML VIAL IVP (11:55)
--- NOTE | 2020-08-25 16:29 | W.PM.PROGNOT ---
Date of Service Date of service: 08/25/20 Time of Service: 16:29 Assessment and Plan Assessment and plan (1) Pneumonia due to COVID-19 virus: Status: Acute Assessment and plan: Continue decadron/remdesivir, vitamin C, D, zinc, melatonin, pepcid. Monitor O2 requirement. Encourage IS. D/c IVF and start diuresis. (2) Hypoxia: Status: Acute Assessment and plan: Due to above - as above (3) Rhabdomyolysis: Status: Resolved Assessment and plan: D/c IVF. Qualifiers: Rhabdomyolysis type: non-traumatic Qualified Code(s): M62.82 - Rhabdomyolysis (4) Dehydration: Status: Resolved (5) Hypokalemia: Status: Resolved Assessment and plan: Recheck in am (6) Thyroid nodule: Status: Acute Assessment and plan: F/u with US as outpatient (7) DVT prophylaxis: Status: Acute Assessment and plan: SC lovenox 40 mg Q24H (8) Discharge planning issues: Status: Acute Assessment and plan: Full code Continues to require hospitalization Subjective Subjective Interval history since last seen: Mr Adorno does not feel any better today. He is requiring 2L of o2 today whereas yesterday he required 1 L. Nursing notes crackles. Denies dizziness, chest pain, nausea. Did have a little diarrhea today. Reports mental fog. Reports purulent nasal secretions (green/brown). Cough is nonproductive. Has been proning.He has been doing some IS, but I encouraged him to do it every commercial break. Exam Narrative Exam Narrative: General: Pleasant middle-aged male on NC @2L (continuous pulse ox at 92%), not in respiratory distress HEENT: EOMI, MMM Cardiovascular: RRR, no m/r/g Lungs: Diminished breath sounds on R; crackles through most of the left lung Gastrointestinal: soft, nontender, nondistended Extremities: trace edema BLE's Objective Last Vital Signs Temp 36.4 C L 08/25/20 11:56 Pulse 78 08/25/20 11:56 Resp 17 08/25/20 11:56 BP 120/84 08/25/20 11:56 Pulse Ox 90 L 08/25/20 11:56 Laboratory Results - last 24 hr 08/25/20 08/25/20 08/25/20 06:45 06:45 09:30 WBC 7.88 RBC 4.39 Hgb 13.7 Hct 40.3 MCV 91.8 MCH 31.2 MCHC 34.0 RDW 12.1 Plt Count 170 MPV 9.7 D-Dimer Sodium 141 Potassium 4.3 Chloride 108 H Carbon Dioxide 25.0 Anion Gap 8.0 BUN 18 Creatinine 1.0 Estimated GFR/1.73 m2 >= 60.00 Glucose 170 H Calcium 7.9 L Magnesium 2.0 Ferritin 1238 H Total Bilirubin 0.6 Conjugated Bilirubin 0.2 AST 130 H ALT 248 H Alkaline Phosphatase 48 Creatine Kinase 283 C-Reactive Protein 0.54 H NT-Pro-B Natriuret Pep 1482 H Total Protein 5.6 L Albumin 2.6 L Procalcitonin 08/25/20 08/25/20 09:30 09:30 WBC RBC Hgb Hct MCV MCH MCHC RDW Plt Count MPV D-Dimer 654 H Sodium Potassium Chloride Carbon Dioxide Anion Gap BUN Creatinine Estimated GFR/1.73 m2 Glucose Calcium Magnesium Ferritin Total Bilirubin Conjugated Bilirubin AST ALT Alkaline Phosphatase Creatine Kinase C-Reactive Protein NT-Pro-B Natriuret Pep Total Protein Albumin Procalcitonin < 0.1
[2020-08-25] MEDS: cefTRIAXone 1 GM/50 ML BAG IVPB (17:00)
[2020-08-25] MEDS: Enoxaparin 40 MG/0.4 ML SYR SC (17:00)
[2020-08-25] MEDS: DOXYCYCLINE 100 MG in Normal Saline 100 ML IVPB (17:42)
[2020-08-25] MEDS: Melatonin 3 MG TAB PO (21:35)
[2020-08-26] VITALS (9 sets, daily range): BP systolic 112–129; BP diastolic 72–80; PULSE 71–98; RESP 17–18; TEMP 36.3–36.8; O2SAT 92–94
[2020-08-26] MEDS: Acetaminophen 325 MG TAB 650 MG PO ×2 (03:03→22:13)
[2020-08-26] MEDS: DOXYCYCLINE 100 MG in Normal Saline 100 ML IVPB ×2 (05:48→17:50)
[2020-08-26 07:40] LABS: Absolute Basophil Count 0.01 10^3/uL (0.0-0.2); Absolute Eosinophil Count 0.01 10^3/uL (0.0-0.7); Absolute Lymphocyte Count 1.43 10^3/uL (1.2-3.4); Absolute Monocyte Count 0.84 10^3/uL (0.1-0.8); Absolute Neutrophil Count 5.19 10^3/uL (1.2-6.7); Basophils % 0.1; Eosinophils % 0.1; HCT 42.8 % (40.0-50.0); HGB 14.6 g/dL (13.5-17.5); Immature Grans % 1.3; Lymphocytes % 18.9; MCH 30.7 pg (27.0-33.0); MCHC 34.1 % (32.0-36.0); MCV 89.9 fL (80-95); MPV 9.7 fL (8.0-11.0); Monocytes % 11.1; Neutrophils % 68.5; Nucleated RBC 0 %; Platelet Count 199 10^3/uL (130-400); RBC 4.76 10^6/uL (4.36-5.78); RDW 12.2 % (11.8-14.1); RDW-SD 40.7 fL; WBC 7.58 10^3/uL (4.4-10.8)
[2020-08-26] MEDS: Ipratropium/Albuterol 4 GM 120 PUFF INH IH ×4 (07:53→19:20)
[2020-08-26] MEDS: Dexamethasone 10 MG/ML VIAL 6 MG IVP (07:53)
[2020-08-26] MEDS: Normal Saline Flush 10 ML SYR IVP ×2 (07:53→12:15)
[2020-08-26] MEDS: Ascorbic Acid 500 MG TAB 1000 MG PO ×2 (07:54→19:20)
[2020-08-26] MEDS: Famotidine 20 MG TAB PO ×2 (07:54→19:20)
[2020-08-26] MEDS: Furosemide 20 MG/2 ML VIAL IVP (07:54)
[2020-08-26] MEDS: Cholecalciferol (Vitamin D3) 1,000 UNIT TAB 4000 UNITS PO (07:54)
[2020-08-26] MEDS: Zinc Sulfate 220 MG TAB PO (07:54)
[2020-08-26 08:05] LABS: ALT 198 U/L (16-63); AST 56 U/L (15-37); Albumin 2.6 g/dL (3.4-5.0); Alkaline Phosphatase 50 U/L (46-116); Anion Gap 6.8 mmol/L (3-11); BUN 19 mg/dL (7-18); Bilirubin, Direct 0.2 mg/dL (0.0-0.2); Bilirubin, Total 0.6 mg/dL (0.2-1.0); C-Reactive Protein 0.63 mg/dL (0.0-0.3); CO2 28.2 mmol/L (21.0-32.0); CREATININE 0.9 mg/dL (0.70-1.30); Calcium 8.2 mg/dL (8.5-10.1); Chloride 105 mmol/L (98-107); Glucose 104 mg/dL (74-106); Magnesium 1.8 mg/dL (1.8-2.4); Sodium 140 mmol/L (136-145)
[2020-08-26 08:22] LABS: D-Dimer 638 ng/mlFEU (<500)
[2020-08-26 08:34] LABS: Ferritin 894 ng/mL (26-388)
--- NOTE | 2020-08-26 12:08 | RESPIRATORY ---
RT ambulated patient in order to monitor SpO2 with ambulation. Patient was ambulated for approximately ten minutes. During this time Patient's SpO2 did not go below 89% and for the majority of the time remained 91%.
--- NOTE | 2020-08-26 16:53 | CMPROGNOTE_ITS ---
- If Service Date Differs Date of service: 08/26/20 Time of Service: 16:53 Care Management Progress Note S/O: Shefali continues to be monitored at M/S level of care. Per report, his O2 needs have decreased, but he still requires hospitalization at this time. CM will attempt to contact him by phone. CM will continue to follow. A: 54 year old male admitted to [facility] 08/21/20 for Covid 19 Pnemonia with hypoxia, syncope P: Anticipate Shefali will return home when ready per MD. He will be offered PCP attachment. Transport will depend on covid exposure considerations. CM continues to follow and will support patient and assess for discharge planning concerns..
[2020-08-26] MEDS: cefTRIAXone 1 GM/50 ML BAG IVPB (17:02)
[2020-08-26] MEDS: Enoxaparin 40 MG/0.4 ML SYR SC (17:02)
--- NOTE | 2020-08-26 17:51 | W.PM.PROGNOT ---
Date of Service Date of service: 08/26/20 Time of Service: 16:40 Assessment and Plan Assessment and plan (1) Pneumonia due to COVID-19 virus: Status: Acute Assessment and plan: Continue decadron/remdesivir, vitamin C, D, zinc, melatonin, pepcid. Monitor O2 requirement. Encourage IS. Continue diuresis. (2) Hypoxia: Status: Acute Assessment and plan: Due to above - as above (3) Rhabdomyolysis: Status: Resolved Qualifiers: Rhabdomyolysis type: non-traumatic Qualified Code(s): M62.82 - Rhabdomyolysis (4) Dehydration: Status: Resolved Assessment and plan: As above (5) Hypokalemia: Status: Resolved Assessment and plan: Recheck in am (6) Thyroid nodule: Status: Acute Assessment and plan: F/u with US as outpatient (7) DVT prophylaxis: Status: Acute Assessment and plan: SC lovenox 40 mg Q24H (8) Discharge planning issues: Status: Acute Assessment and plan: Full code Continues to require hospitalization. We started the conversation about him going home on oxygen if his O2 requirement does not budge. Subjective Subjective Interval history since last seen: Mr Adorno states it's really hard for him to take deep breaths and to work with IS. I discussed how important it is to do it, however. He does not feel better today. Stools are getting more solid. Denies dizziness, chest pain, shortness of breath. Cough is somewhat better. Nasal secretions are clearing up. Exam Narrative Exam Narrative: General: Pleasant middle-aged male on NC @1.5L (continuous pulse ox at 93%), not in respiratory distress HEENT: EOMI, MMM Cardiovascular: RRR, no m/r/g Lungs: Diminished breath sounds on R; crackles through most of the left lung Gastrointestinal: soft, nontender, nondistended Extremities: trace edema BLE's Objective Last Vital Signs Temp 36.8 C 08/26/20 12:20 Pulse 93 H 08/26/20 12:20 Resp 18 08/26/20 12:20 BP 118/78 08/26/20 12:20 Pulse Ox 93 08/26/20 14:24 Laboratory Results - last 24 hr 08/26/20 08/26/20 08/26/20 07:12 07:12 07:12 WBC 7.58 RBC 4.76 Hgb 14.6 Hct 42.8 MCV 89.9 MCH 30.7 MCHC 34.1 RDW 12.2 Plt Count 199 MPV 9.7 Immature Gran % 1.3 Neutrophils % 68.5 Lymphocytes % 18.9 Monocytes % 11.1 Eosinophils % 0.1 Basophils % 0.1 Nucleated RBC % 0 Absolute Neutrophils 5.19 Absolute Lymphocytes 1.43 Absolute Monocytes 0.84 H Absolute Eosinophils 0.01 Absolute Basophils 0.01 D-Dimer 638 H Sodium 140 Potassium 4.0 Chloride 105 Carbon Dioxide 28.2 Anion Gap 6.8 BUN 19 H Creatinine 0.9 Estimated GFR/1.73 m2 >= 60.00 Glucose 104 D Calcium 8.2 L Magnesium 1.8 Ferritin 894 H Total Bilirubin 0.6 Conjugated Bilirubin 0.2 AST 56 H ALT 198 H Alkaline Phosphatase 50 C-Reactive Protein 0.63 H Total Protein 6.0 L Albumin 2.6 L
[2020-08-26] MEDS: Melatonin 3 MG TAB PO (22:13)
[2020-08-27] VITALS (8 sets, daily range): BP systolic 109–117; BP diastolic 72–84; PULSE 61–91; RESP 14–20; TEMP 36.4–37; O2SAT 91–96
[2020-08-27] MEDS: DOXYCYCLINE 100 MG in Normal Saline 100 ML IVPB ×2 (06:38→18:16)
[2020-08-27 07:39] LABS: Abs Immature Grans 0.18 10^3/uL (0.0-0.06); Absolute Basophil Count 0.01 10^3/uL (0.0-0.2); Absolute Eosinophil Count 0.02 10^3/uL (0.0-0.7); Absolute Lymphocyte Count 1.64 10^3/uL (1.2-3.4); Absolute Monocyte Count 0.78 10^3/uL (0.1-0.8); Absolute Neutrophil Count 4.52 10^3/uL (1.2-6.7); Basophils % 0.1; Eosinophils % 0.3; HCT 45.1 % (40.0-50.0); HGB 15.3 g/dL (13.5-17.5); Immature Grans % 2.5; Lymphocytes % 22.9; MCH 30.8 pg (27.0-33.0); MCHC 33.9 % (32.0-36.0); MCV 90.9 fL (80-95); MPV 9.5 fL (8.0-11.0); Monocytes % 10.9; Neutrophils % 63.3; Nucleated RBC 0 %; Platelet Count 242 10^3/uL (130-400); RBC 4.96 10^6/uL (4.36-5.78); RDW 12.3 % (11.8-14.1); RDW-SD 40.6 fL; WBC 7.15 10^3/uL (4.4-10.8)
[2020-08-27] MEDS: Cholecalciferol (Vitamin D3) 1,000 UNIT TAB 4000 UNITS PO (07:41)
[2020-08-27] MEDS: Zinc Sulfate 220 MG TAB PO (07:41)
[2020-08-27] MEDS: Dexamethasone 10 MG/ML VIAL 6 MG IVP (07:42)
[2020-08-27] MEDS: Ascorbic Acid 500 MG TAB 1000 MG PO ×2 (07:42→20:51)
[2020-08-27] MEDS: Furosemide 20 MG/2 ML VIAL IVP (07:42)
[2020-08-27] MEDS: Ipratropium/Albuterol 4 GM 120 PUFF INH IH ×4 (07:42→20:52)
[2020-08-27] MEDS: Famotidine 20 MG TAB PO ×2 (07:42→20:51)
[2020-08-27] MEDS: Normal Saline Flush 10 ML SYR IVP ×2 (07:44→16:46)
[2020-08-27 07:56] LABS: ALT 170 U/L (16-63); AST 36 U/L (15-37); Albumin 2.8 g/dL (3.4-5.0); Alkaline Phosphatase 50 U/L (46-116); Anion Gap 4.5 mmol/L (3-11); BUN 24 mg/dL (7-18); Bilirubin, Direct 0.2 mg/dL (0.0-0.2); Bilirubin, Total 0.6 mg/dL (0.2-1.0); C-Reactive Protein 0.41 mg/dL (0.0-0.3); CO2 32.5 mmol/L (21.0-32.0); CREATININE 1.1 mg/dL (0.70-1.30); Calcium 8.6 mg/dL (8.5-10.1); Chloride 102 mmol/L (98-107); Glucose 98 mg/dL (74-106); Magnesium 1.9 mg/dL (1.8-2.4); Potassium 4.4 mmol/L (3.5-5.1); Sodium 139 mmol/L (136-145); Total Protein 6.3 g/dL (6.4-8.2)
[2020-08-27 08:19] LABS: Ferritin 842 ng/mL (26-388)
[2020-08-27 08:23] LABS: D-Dimer 638 ng/mlFEU (<500)
[2020-08-27] MEDS: Normal Saline 500 ML 30 ML IV (16:43)
[2020-08-27] MEDS: Enoxaparin 40 MG/0.4 ML SYR SC (16:43)
[2020-08-27] MEDS: cefTRIAXone 1 GM/50 ML BAG IVPB (16:43)
--- NOTE | 2020-08-27 17:58 | PGE_ITS ---
Date of Service Date of service: 08/27/20 Time of Service: 17:58 Assessment and Plan Assessment and plan (1) Pneumonia due to COVID-19 virus: Status: Acute Assessment and plan: Continue decadron/remdesivir, vitamin C, D, zinc, melatonin, pepcid. Monitor O2 requirement. Encourage IS (we spoke at length about this today). Consider therapeutic anticoagulation. Continue diuresis. (2) Hypoxia: Status: Acute Assessment and plan: Due to above - as above (3) Rhabdomyolysis: Status: Resolved Assessment and plan: off IVF. Qualifiers: Rhabdomyolysis type: non-traumatic Qualified Code(s): M62.82 - Rhabdomyolysis (4) Dehydration: Status: Resolved Assessment and plan: As above (5) Hypokalemia: Status: Resolved Assessment and plan: Recheck in am (6) Thyroid nodule: Status: Acute Assessment and plan: F/u with US as outpatient (7) DVT prophylaxis: Status: Acute Assessment and plan: SC lovenox 40 mg Q24H (8) Discharge planning issues: Status: Acute Assessment and plan: Full code Continues to require hospitalization. The patient will possibly be discharged home on oxygen. Subjective Subjective Interval history since last seen: Mr Adorno feels better today. he took a shower. Denies dizziness, chest pain, shortness of breath, nausea, and diarrhea has resolved - his stools are now soft. Unfortunately, he is still requiring 2L of O2 to saturate >88%. His O2 sats are 92% while I am in the room with him. Exam Narrative Exam Narrative: General: Pleasant middle-aged male on NC 2L (continuous pulse ox at 92%), not in respiratory distress, looks better than yesterday, [place] HEENT: EOMI, MMM Cardiovascular: RRR, no m/r/g Lungs: Diminished breath sounds on R; very faint crackles auscultated today Gastrointestinal: soft, nontender, nondistended Extremities: trace edema BLE's Objective Last Vital Signs Temp 36.4 C L 08/27/20 16:34 Pulse 91 H 08/27/20 16:34 Resp 14 08/27/20 16:34 BP 117/84 08/27/20 16:34 Pulse Ox 91 L 08/27/20 16:39 Laboratory Results - last 24 hr 08/27/20 08/27/20 08/27/20 07:20 07:20 07:20 WBC 7.15 RBC 4.96 Hgb 15.3 Hct 45.1 MCV 90.9 MCH 30.8 MCHC 33.9 RDW 12.3 Plt Count 242 MPV 9.5 Immature Gran % 2.5 Neutrophils % 63.3 Lymphocytes % 22.9 Monocytes % 10.9 Eosinophils % 0.3 Basophils % 0.1 Nucleated RBC % 0 Absolute Neutrophils 4.52 Absolute Lymphocytes 1.64 Absolute Monocytes 0.78 Absolute Eosinophils 0.02 Absolute Basophils 0.01 D-Dimer 638 H Sodium 139 Potassium 4.4 Chloride 102 Carbon Dioxide 32.5 H Anion Gap 4.5 BUN 24 H Creatinine 1.1 Estimated GFR/1.73 m2 >= 60.00 Glucose 98 Calcium 8.6 Magnesium 1.9 Ferritin 842 H Total Bilirubin 0.6 Conjugated Bilirubin 0.2 AST 36 ALT 170 H Alkaline Phosphatase 50 C-Reactive Protein 0.41 H Total Protein 6.3 L Albumin 2.8 L
--- NOTE | 2020-08-27 18:54 | PDOC.CMPRO ---
- If Service Date Differs Date of service: 08/27/20 Time of Service: 18:54 Care Management Progress Note S/O: Shefali remains under precautions for Covid 19, being closely monitored. Per RT, he is still requiring 2L of O2, although he does not qualify for home O2. He had a shower today, which he was happy about, per RN. He is being treated with decadron/remdesivir, vitamin C, D and zinc. He continues to require hospitalization at this time due to his O2 requirements. CM will continue to follow. A: 54 year old male admitted to [facility] 08/21/20 for Covid 19 Pnemonia with hypoxia, syncope P: Anticipate Shefali will return home when ready per MD. He will be offered PCP attachment. Transport will depend on covid exposure considerations. CM continues to follow and will support patient and assess for discharge planning concerns.
[2020-08-27] MEDS: Melatonin 3 MG TAB PO (20:51)
[2020-08-27] MEDS: Acetaminophen 325 MG TAB 650 MG PO (20:51)
[2020-08-28] VITALS (8 sets, daily range): BP systolic 99–119; BP diastolic 61–84; PULSE 71–105; RESP 16–28; TEMP 36.3–36.5; O2SAT 88–95
--- NOTE | 2020-08-28 | DI.CT_ITS ---
EXAM: CT CHEST PE CTA CLINICAL HISTORY: R/O PE in setting of COVID with oxygen requirent. TECHNIQUE: Imaging Protocol: Axial CT angiography was performed with multi-slice acquisition and mu lti-planar and/or 3D reconstructions. CONTRAST MATERIAL: Intravenous: Visipaque 320 contrast volume:100 mL COMPARISON: CT CT CHEST PE CTA from 08/21/2020 FINDINGS: Tracheobronchial tree: Patent where visualized. Pulmonary parenchyma: There again seen bilateral predominantly peripheral ground-glass opacities in t he lungs. There has been slight progression of the infiltrates compared to the prior examination par ticularly in the right upper lobe. No architectural distortion. Pulmonary Arteries: No evidence of filling defect to suggest pulmonary emboli. Mediastinum and Makenna: No dominant adenopathy or fluid collection. Visualized thyroid gland: Stable thyroid nodules. Pleura: There do appear to be tiny bilateral pleural effusions. No pneumothorax. Heart: The heart is not dilated. No coronary artery calcifications are seen. No pericardial effusion. Aorta: Thoracic aorta non-dilated. No evidence of dissection. Upper abdomen: Status post cholecystectomy. Soft tissues: Unremarkable. Bones: No acute abnormality. IMPRESSION: 1. No evidence of pulmonary embolism, thoracic aortic dissection or aneurysm. 2. Bilateral ground-glass opacities. Slight progression of the infiltrates is seen in the right uppe r lobe. The pulmonary findings are consistent with the patient's known diagnosis of COVID- 19. RADIATION DOSE DELIVERED: 398.97mGy.cm Total DLP DATA REPOSITORY: All CT scans at this facility are submitted to the National Radiology Data Registry (NRDR) Dose Index Registry (DIR) with the [employer] (A[employer]). RADIATION OPTIMIZATION: All CT scans at this facility use at least one of these dose optimization te chniques: automated exposure control; mA and/or kV adjustment per patient size (includes targeted exa ms where dose is matched to clinical indication); or iterative reconstruction.
--- NOTE | 2020-08-28 | DI.US_ITS ---
EXAM: US EXTREMITY VENOUS BI CLINICAL HISTORY: r/o dvt with pain to ankle in setting of COVID. TECHNIQUE: Bilateral lower extremity venous ultrasound performed using grayscale, color-flow, and sp ectral Doppler analysis. COMPARISON: No exams were available for comparison FINDINGS: The bilateral common femoral, femoral and popliteal veins demonstrate normal compressibility, augment ation, and color Doppler. The posterior tibial veins are patent. The saphenofemoral junctions are unr emarkable. There is no evidence of a Siddiqi's cyst. The soft tissues are unremarkable. IMPRESSION: Right: Negative for DVT Left: Negative for DVT DATA REPOSITORY:
[2020-08-28] MEDS: Normal Saline Flush 10 ML SYR IVP ×3 (06:15→12:19)
[2020-08-28] MEDS: DOXYCYCLINE 100 MG in Normal Saline 100 ML IVPB (06:15)
[2020-08-28] MEDS: Normal Saline 500 ML 30 ML IV (06:16)
[2020-08-28] MEDS: Cholecalciferol (Vitamin D3) 1,000 UNIT TAB 4000 UNITS PO (08:53)
[2020-08-28] MEDS: Dexamethasone 10 MG/ML VIAL 6 MG IVP (08:53)
[2020-08-28] MEDS: Furosemide 20 MG/2 ML VIAL IVP (08:53)
[2020-08-28] MEDS: Zinc Sulfate 220 MG TAB PO (08:54)
[2020-08-28] MEDS: Famotidine 20 MG TAB PO (08:54)
[2020-08-28] MEDS: Ascorbic Acid 500 MG TAB 1000 MG PO (08:54)
[2020-08-28] MEDS: Ipratropium/Albuterol 4 GM 120 PUFF INH IH ×2 (08:56→11:05)
[2020-08-28] MEDS: Normal Saline - Diluent 50 ML VIAL IV (10:47)
[2020-08-28] MEDS: Enoxaparin 100 MG/ML SYR SC (10:57)
--- NOTE | 2020-08-28 13:59 | DSE_ITS ---
Date of service: 08/28/20 Time of Service: 13:59 DS: Diagnosis Discharge Diagnosis (1) Pneumonia due to COVID-19 virus: Start date: 08/28/20 Start time: 14:00 Status: Acute Asessment and Plan: Patient is day 7 of COVID 19 with improving symptoms. He is requiring 1 Liter oxygen with ambulation. Exercise oximetry is 88 with ambulation, he does increase to 91% with 1 L. He has been on decadron/remdesivir, vit c, d zinc, melationin and pepcid. D dimer initially elevated however it has leveled out CTA negative for PE Bilat u/s negative for DVT. Will do short steroid taper, continue vitamin D 4,000 and melatonin Follow up with PCP when off of quarentine He will need a pulse ox to monitor oxygen level and follow up if sat less than 89% (2) Hypoxia: Start date: 08/28/20 Start time: 14:17 Status: Acute Asessment and Plan: Improving, as above. (3) Rhabdomyolysis: Start date: 08/28/20 Start time: 14:17 Status: Resolved Asessment and Plan: He was on IVF (4) Dehydration: Start date: 08/28/20 Start time: 14:17 Status: Resolved Asessment and Plan: Received IVF (5) Hypokalemia: Start date: 08/28/20 Start time: 14:17 Status: Resolved Asessment and Plan: Resolved with repletion (6) Thyroid nodule: Start date: 08/28/20 Start time: 14:18 Status: Acute Asessment and Plan: Several thyroid nodules including a peripherally calcified 1.4 cm nodule in the left lobe. Nonemergent thyroid ultrasound should be considered for further evaluation. He will need further work up as an outpatient this can be done by his PCP above case discussed with Dr. Quintero. Discharge Plan Disposition Patient Disposition: HOME Condition: Improving Discharge Details Reason For Visit: COVID 19 PNEMONIA WITH HYPOXIA Admit Date/Time: 08/21/20 12:57 Admit Provider: Rivka Quintero Attending Provider: Rivka Quintero Primary Care Provider: Unknown,Unknown Hospital Course Hospital Course: Mr Adorno is a 54 year old male with no significant PMHx who was diagnosed with COVID-19 10 days prior to admission was admitted to [facility] with c/o malaise, fatigue, and weakness, to the point that he felt unsteady on his feet. He denied dizziness, endorsed a constant headache, endorsed changes to sense of taste, denied chest pain and shortness of breath, but did endorse a dry cough. He denied nausea, but had diarrhea x 2 days. He denied body aches. He states his PO intake has been poor due to the changes in his taste. In the ED, his O2 saturation was 89% on room air. PE was ruled out. Hospitalists were asked to admit the patient for covid-19 pneumonia. He was initiated on remdesivir and decadron. Of note, the patient had elevated AST/ALT on his blood work with preserved alk phos, and his CPK is elevated, indicating rhabdomyolysis. He did receive IVF. Over course of treatment he was placed on decadron, vitamin D, zinc, melatonin, pepci, oxygen level was monitored. He did require oxygen. Atorvastatin was held due to rhabdo. PE and DVT were ruled out with negative imaging; though he did have several thyroid nodules seen by imaging will defer to PCP for further workup. He is feeling better. He is requiring oxygen, ambulatory exercise reveals decrease in oxygen at 88% requiring 1 L bumping him up to 92%. He will be discharged home on oxygen. He will need follow up after quarantine from [facility] with PCP. The state will contact him to let him know. He will need to stay quarantined at home from his room until he is asymptomatic and cleared. He will also need to distance around his roommates 6 feet and wear a mask if he leaves his room to prevent spread which this was discussed. He will be sent home on Vit D, Melatonin and decadron taper. He denies CP, N/V/D, and SOB when nonambulatory and when ambulatory. Encourage patient to continue to use IS and acapella. Home Meds and New Rx's Prescriptions: New ascorbic acid (vitamin C) [Vitamin C] 500 mg Tablet 1,000 mg PO BID Qty: 60 RF: 0 cholecalciferol (vitamin D3) 25 mcg (1,000 unit) Tablet 4,000 units PO DAILY Qty: 30 RF: 0 dexamethasone 1 mg tablet 1 mg PO DAILY Qty: 45 RF: 0 amoxicillin-pot clavulanate [Augmentin] 875-125 mg tablet 1 tab PO BID Qty: 14 RF: 0 Continued zinc 50 MG tablet 50 mg PO DAILY RF: 0 vitamin A palmitate 10,000 UNIT capsule 10,000 units PO DAILY RF: 0 Discontinued ranitidine HCl [Zantac] 150 MG tablet 150 mg PO DAILY RF: 0 cholecalciferol (vitamin D3) 1,000 UNITS tablet 3,000 unit PO DAILY RF: 0 Discharge Instructions Instructions: Sinusitis (GEN), Rhabdomyolysis (DC), Using Oxygen at Home (GEN), Hypoxia (GEN), Pulse Oximetry (DC), Complications of Infection (GEN), COVID-19 (Coronavirus Disease 2019) (DC) Additional Instructions: Use oxygen at home. Check your oxygen through out the day. If your oxygen Level is less than 89 greater than three times on oxygen report to ED. If your oxygen level is greater than 92 three times on oxygen you can take off the oxygen and trial being off the oxygen, check your oxygen level after about 5-10 mins if off the oxygen if continues to above 92% especially when moving around you can keep it off if it fall below 89% than you need to place the oxygen back on. Stay in quarantine until the [facility] states you can be off. Try to stay in your room, if you have to be around your roommates, maintain 6 feet distance, wear a mask at all times. Continue to take vitamin D, C and melatonin. You will have a steroid taper. If symptoms worsen report to ED immediately. Call and schedule appt with PCP when you are off restrictions Continue to use Incentive Spirometer and acapellla Stand Alone Forms: Nursing Discharge Form Activity:: Activity as Tolerated Equipment/Supplies:: Oxygen (L/min Below) Diet:: As Tolerated Discharge Orders Discharge Orders: Discharge Order (Routine); Ordered 08/28/20 Ordered By: Corrina Mariano DS: Summary Time Spent with Patient providing and/or coordinating discharge services: Greater than 30 minutes (approx 60 mins) Status at Discharge Functional status at discharge: independent ambulation Overall status at discharge: patient is progressing back to baseline Mental Status: mental status grossly normal Speech and Movement: speech and movement normal Mood: congruent mood Affect: normal affect Exam Narrative Exam Narrative: General: Pleasant middle-aged male on NC 1L (continuous pulse ox at 92%), not in respiratory distress, by camera appears to be well, does not sound SOB, [place] HEENT: EOMI, MMM Cardiovascular: RRR, no m/r/g Lungs: did not auscultate, per nursing he did not sound wet, He was able to speak in complete sentences and did not sound SOB Gastrointestinal: soft, nontender, nondistended Extremities: trace edema BLE's Psych Mental Status: mental status grossly normal Speech and Movement: speech and movement normal Mood: congruent mood Affect: normal affect DS: Data Vitals/I&O Vitals and I&O: Vital Signs Temperature 36.3 C L 08/28/20 12:20 Temperature Source Tympanic 08/28/20 12:20 Pulse 97 H 08/28/20 12:20 Pulse Rhythm Regular 08/28/20 06:47 Pulse 74 08/26/20 19:15 Respiratory Rate 18 08/28/20 12:20 Respiratory Effort Non-Labored 08/28/20 06:47 Respiratory Depth Normal 08/28/20 06:47 Respiratory Pattern Normal 08/28/20 06:47 Blood Pressure 99/70 L 08/28/20 12:20 Blood Pressure Mean 88 08/21/20 13:31 Blood Pressure Position Sitting 08/21/20 11:00 Pulse Oximetry 93 08/28/20 12:20 Oxygen Delivery Method Nasal Cannula 08/28/20 12:20 Oxygen Flow Rate 1 08/28/20 12:20 Pain Level 0 08/28/20 12:20 Comment 08/28/20 12:20 Intake & Output 08/27/20 08/28/20 08/28/20 23:59 11:59 23:59 Intake Total 660 / 1120 1266.5 / 1266.5 Output Total 1400 / 1400 600 / 600 Balance -740 / -280 666.5 / 666.5 Weight 91.626 kg Intake: IV 200 / 300 426.5 / 426.5 Oral 460 / 820 840 / 840 Output: Urine 1400 / 1400 600 / 600 Other: Urine Color Yellow Pale Yellow Urine Appearance Clear Clear Urine Odor Normal Normal Comment Patient voids in bedside urinal and in toilet at times. Void x1 in the urinal. Stool Characteristics Soft Voiding Methods Toilet Urinal Data Completed and Pending Completed studies during hospitalization [Text1]: Exam(s) a CT:CT chest PE CTA EXAM: CT CHEST PE CTA CLINICAL HISTORY: Covid Positive, SOB, Hypoxia. TECHNIQUE: Imaging Protocol: Axial CT angiography was performed with multi- slice acquisition and multi-planar and/or 3D reconstructions. CONTRAST MATERIAL: Intravenous: Omnipaque 350 Contrast volume:100 mL COMPARISON: No exams were available for comparison FINDINGS: Tracheobronchial tree: Patent where visualized. Pulmonary parenchyma: Bilateral multifocal ground-glass predominantly peripheral infiltrates are seen in the lungs. No architectural distortion. Pulmonary Arteries: No evidence of filling defect to suggest pulmonary emboli. Mediastinum and Makenna: No dominant adenopathy or fluid collection. Visualized thyroid gland: There are several pulmonary nodules. The largest is in the inferior left lobe and measures 1.4 cm with peripheral calcification. Pleura: No effusion or pneumothorax. Heart: The heart is not dilated. No coronary artery calcifications are seen. No pericardial effusion. Aorta: Thoracic aorta non-dilated. No evidence of dissection. Upper abdomen: Status post cholecystectomy. Soft tissues: Unremarkable. Bones: Normal. IMPRESSION: 1. No evidence of pulmonary embolism, thoracic aortic dissection or aneurysm. 2. Bilateral multifocal ground-glass predominantly peripheral infiltrates. Multifocal pneumonia should be considered. Particularly atypical or viral infections including COVID-19. 3. Several thyroid nodules including a peripherally calcified 1.4 cm nodule in the left lobe. Nonemergent thyroid ultrasound should be considered for further evaluation. 4. Results of this exam have been verbally communicated with provider. Exam(s) a CT:CT chest PE CTA EXAM: CT CHEST PE CTA CLINICAL HISTORY: R/O PE in setting of COVID with oxygen requirent. TECHNIQUE: Imaging Protocol: Axial CT angiography was performed with multi- slice acquisition and multi-planar and/or 3D reconstructions. CONTRAST MATERIAL: Intravenous: Visipaque 320 contrast volume:100 mL COMPARISON: CT CT CHEST PE CTA from 08/21/2020 FINDINGS: Tracheobronchial tree: Patent where visualized. Pulmonary parenchyma: There again seen bilateral predominantly peripheral ground-glass opacities in the lungs. There has been slight progression of the infiltrates compared to the prior examination particularly in the right upper lobe. No architectural distortion. Pulmonary Arteries: No evidence of filling defect to suggest pulmonary emboli. Mediastinum and Makenna: No dominant adenopathy or fluid collection. Visualized thyroid gland: Stable thyroid nodules. Pleura: There do appear to be tiny bilateral pleural effusions. No pneumothorax. Heart: The heart is not dilated. No coronary artery calcifications are seen. No pericardial effusion. Aorta: Thoracic aorta non-dilated. No evidence of dissection. Upper abdomen: Status post cholecystectomy. Soft tissues: Unremarkable. Bones: No acute abnormality. IMPRESSION: 1. No evidence of pulmonary embolism, thoracic aortic dissection or aneurysm. 2. Bilateral ground-glass opacities. Slight progression of the infiltrates is seen in the right upper lobe. The pulmonary findings are consistent with the patient's known diagnosis of COVID- 19. Exam(s) a US:US extremity venous BI EXAM: US EXTREMITY VENOUS BI CLINICAL HISTORY: r/o dvt with pain to ankle in setting of COVID. TECHNIQUE: Bilateral lower extremity venous ultrasound performed using grayscale, color-flow, and spectral Doppler analysis. COMPARISON: No exams were available for comparison FINDINGS: The bilateral common femoral, femoral and popliteal veins demonstrate normal compressibility, augmentation, and color Doppler. The posterior tibial veins are patent. The saphenofemoral junctions are unremarkable. There is no evidence of a Siddiqi's cyst. The soft tissues are unremarkable. IMPRESSION: Right: Negative for DVT Left: Negative for DVT DATA REPOSITORY: [facility] Medical History No pertinent past medical history Surgical History S/P cholecystectomy Family History Maternal Aunt Cancer lung cancer in multiple maternal family members all of whom were smokers Father Heart disease Diabetes Hypertension Social History Smoking/Tobacco Use Status: Never Smoking risk assessment performed?: Yes Alcohol Intake: current Alcohol Intake frequency: a few times a week Drug use: Never Substance use type: does not use Do you feel safe at home: Yes Do you feel safe in your relationship?: Yes
--- NOTE | 2020-08-28 17:40 | PDOC.CMDIS ---
- If Service Date Differs Date of service: 08/28/20 Time of Service: 17:40 LACE Index Scoring Tool - Questions: Length of Stay (in days): 7 - 13 Acuity (Admit via E.D.?): Yes E.D. Visits: 1 - Answers: Total Score: 9 Risk of Readmission: Low Risk Care Management Discharge Reason for Hospitalization: Covid 19 Pneumonia with Hypoxia Discharge Plan: Shefali was discharged home today with new home O2, coordinated by RT. He was sent home with an O2 tank that will last him 9 hrs, per RT, if used continuously, to hold him over until his O2 is delivered. He was driven home via private vehicle by a friend. He will follow up with his PCP and discharge plan of care. Patient/Family Education Needs: Review discharge intructions regarding CDC recommendations for quarantining, medications, oxygen, and activity levels. Discussion of self care needs including ask me three. Services Needed at Discharge: Oxygen Therapy (new O2)
--- NOTE | 2020-08-28 17:53 | RESPIRATORY ---
RT gave and educated patient on the use of pulse oximtery once D/C'ed to home. Patient was instructed to check his O2 levels three times each day, 2hrs after exercising or movement to get the most accurate reading. RT instructed patient to do this for a whole week and take readings the same time each day or as close as possible. Patient was given three surgical masks to use at home and told to quaratine according to D/C directions given by Doctor. All paper work was signed and faxed to [facility] to get patient oxygen at home while recovering from Covid-19. [facility] told RT that oxygen would be deliver to patient today. [employer], Caridad Moody, recieved a call from patient stating [facility] had not dropped off oxygen yet around 5:30pm. RT then called [facility]'s call center to find out if oxygen was going to be delivered to patient like what was stated earlier. [facility] stated a page would go out to on-call staff to call patient with an ETA of O2 delivery. RT called and followed up with patient to let him know [facility] would be in contact with him.
== END 2020-08-28 16:54 | disposition home or self-care (01) | DRG 177 ==
LOC: ER 13:28 → MS 14:14
PROVIDERS: Family Medicine; Admitting Provider Internal Medicine; Emergency Provider Registered Nurse Emergency; Visit Provider Internal Medicine
DX: U07.1 COVID-19 (principal); J12.82 Pneumonia due to coronavirus disease 2019; M62.82 Rhabdomyolysis; E86.0 Dehydration; E87.6 Hypokalemia; E04.1 Nontoxic single thyroid nodule; R09.02 Hypoxemia
CPT/HCPCS: 36410; 36415; 71275; 80048; 80053; 80076; 82306; 82550; 84145; 85027; 87040; 93005; 94618; 94640; 96361; 96365; 99223; 99232; 99233; 99239; 99285; J1650; 82728; 83605; 83615; 83735; 83880; 84484; 85025; 85379; 86140; 93010; 93970; 94667; 94668; J0696; J1100; J1941; J3490

== ENCOUNTER 2020-11-24 03:14 | Outpatient (CLI) | payer BC, SELFPAY ==
[2020-11-24 12:28] LABS: HCT 42.1 % (40.0-50.0); HGB 13.8 g/dL (13.5-17.5); MCH 30.9 pg (27.0-33.0); MCHC 32.8 % (32.0-36.0); MCV 94.2 fL (80-95); Platelet Count 202 10^3/uL (130-400); RBC 4.47 10^6/uL (4.36-5.78); RDW 13.3 % (11.8-14.1); RDW-SD 46.1 fL; WBC 5.08 10^3/uL (4.4-10.8)
[2020-11-24 12:46] LABS: Hemoglobin A1C 5.3 % (<5.7)
[2020-11-24 12:48] LABS: ALT 31 U/L (16-63); AST 18 U/L (15-37); Alkaline Phosphatase 70 U/L (46-116); BUN 20 mg/dL (7-18); Bilirubin, Total 0.5 mg/dL (0.2-1.0); Calcium 8.9 mg/dL (8.5-10.1); Chloride 106 mmol/L (98-107); Glucose 104 mg/dL (74-106); Potassium 4.4 mmol/L (3.5-5.1); Sodium 142 mmol/L (136-145); TSH (W/Ref FT4) 0.35 uIU/mL (0.36-3.74); Total Protein 7.2 g/dL (6.4-8.2)
[2020-11-24 13:04] LABS: FREE T4 0.83 ng/dL (0.76-1.46)
== END 2020-11-24 03:15 | disposition home or self-care (01) ==
LOC: LOS 03:14
PROVIDERS: PCP Nurse Practitioner Family; Visit Provider Nurse Practitioner Family
DX: Z00.00 Encounter for general adult medical examination without abnormal findings (principal); Z13.1 Encounter for screening for diabetes mellitus; E04.1 Nontoxic single thyroid nodule; Z12.5 Encounter for screening for malignant neoplasm of prostate
CPT/HCPCS: 36415; 80053; 85027; 83036; 84154; 84439; 84443

== ENCOUNTER 2021-08-20 07:00 | Day surgery (SDC) | payer BC, SELFPAY ==
[2021-08-20 07:19] VITALS: BP 136/99; PULSE 85; RESP 16; TEMP 36.5; O2SAT 98
[2021-08-20] MEDS: Tropicam./Phenyleph. (1/2.5%) 5 ML BTL OD ×3 (07:33→07:43)
--- NOTE | 2021-08-20 07:44 | W.ANESPRE ---
General Info Date of Service Date Performed: 08/20/21 Height: 6 ft 1 in Weight: 102.5 kg Body Mass Index (BMI): 29.8 Surgical Procedure: Operation Date: 08/20/21 08:25 Proposed Procedure Side Surgeon p Cataract Extraction with IOL Implant Right Harrison Toscano MD Meds Allergies and Home Medications Allergies Allergy/AdvReac Type Severity Reaction Status Date / Time No Known Allergies Allergy Verified 08/20/21 07:25 Home Medication Medication Instructions Recorded vitamin A palmitate 10,000 unit 10,000 units PO DAILY 01/02/14 capsule zinc 50 mg tablet 50 mg PO DAILY 01/02/14 ascorbic acid (vitamin C) 500 mg 1,000 mg PO BID #60 tab 08/28/20 tablet (Vitamin C) cholecalciferol (vitamin D3) 25 4,000 units PO DAILY #30 tab 08/28/20 mcg (1,000 unit) tablet apixaban 5 mg tablet 5 mg PO BID #180 tab 05/28/21 [id number] 333 2 tab PO DAILY 08/20/21 mg-333 mg-100 mg tablet Current Visit Medications: Current Medications Generic Name Dose Route Start Last Admin Trade Name Freq PRN Reason Stop Dose Admin Acetaminophen 1,000 mg 08/20/21 06:00 Acetaminophen 500 Mg Tab PO Q4H PRN PRN Miscellaneous Medication 0 ml 08/20/21 06:00 Prednisolone 1%, Moxifloxacin 0.5%, Nepafenac 0.1% 5ml Btl OD DIRECTED [facility] Miscellaneous Medication 0 ml 08/20/21 06:00 08/20/21 07:43 Tropicam./Phenyleph. (1/2.5%) 5 Ml Btl OD 1 drp DIRECTED [facility] Administration Tetracaine HCl 0 ml 08/20/21 06:00 Tetracaine 0.5% 4 Ml Btl OD DIRECTED [facility] PFSH Active Problems Active Problems: Problem Status Onset Code Thyroid nodule E04.1 GERD (gastroesophageal reflux disease) ~2009 K21.9 Anxiety F41.9 Cholelithiasis K80.20 Dyspepsia R10.13 Deep vein thrombosis (DVT) I82.409 Cataract H26.9 Nuclear sclerotic cataract of right eye H25.11 Medical History Medical History Biliary colic COVID-19 08/11/20 No pertinent past medical history Pneumonia due to COVID-19 virus Surgical History Surgical History History of colonoscopy (~04/12/10) hyperplastic polyp History of esophagogastroduodenoscopy (EGD) (~08/26/09) with biopsies S/P cholecystectomy [place] teeth removed Tobacco Smoking/Tobacco Use Status: Never Passive smoking exposure: Yes Alcohol Alcohol Intake: current Alcohol intake frequency: a few times a week Alcohol type: beer Substance Use Substance use: Never Substance use type: does not use Vital Signs and Lab Results Vital Signs Most Recent Vital Signs in EMR: Most Recent Vital Signs Temp Pulse Resp BP Pulse Ox 36.5 C 85 16 136/99 H 98 08/20/21 07:19 08/20/21 07:19 08/20/21 07:19 08/20/21 07:19 08/20/21 07:19 Lab Results Blood Type / Crossmatch: No Data to Display Complete Blood Count: No Data to Display Complete Metabolic Panel: No Data to Display Liver Function Panel: No Data to Display Coagulation Panel: No Data to Display Cardiac Panel: No Data to Display Arterial Blood Gas: No Data to Display Venous Blood Gas: No Data to Display Pancreas Panel: No Data to Display Thyroid Panel: No Data to Display Infectious Disease: No Data to Display Blood Cultures: No Data to Display Toxicology Panel: No Data to Display Imaging and Studies Imaging and Studies Study information below may be from another EMR and interpreted by another provider. Please see original notes in EMR for more complete details. EKG Summary: Conclusion Sinus rhythm...normal P axis, V-rate 60- 99 Inferior infarct, old...Q >35mS, II III aVF Physician: no stemi 08/21/20 Anesthesia Assessment and Plan Anesthesia History Personal History: No History of Anesthesia Complications Family History: No Family History of Anesthesia Complications Exercise Tolerance Exercise Tolerance: Metabolic Equivalents>4 Pertinent Negatives Pertinent Negatives: No Major Cardiovascular Symptoms or Complaints, No Major Pulmonary Symptoms or Complaints and No History of CVA/TIA Cardiac & Pulmonary Exam Cardiac Exam: Normal S1/S2 Heart Sounds Pulmonary Exam: Clear Bilateral Breath Sounds Implantable Cardiac Device Does patient have a Pacemaker or an ICD?: No Airway Exam Known Difficult Airway: No Mallampati Class: 2 Mouth Opening: Normal (> 3cm) Thyromental Distance: Greater than 3 cm Neck Range of Motion: Full ROM Neck Circumference: Normal Teeth Condition: Normal Dentition ASA Classification ASA Score: ASA 2 Emergency Case?: No NPO Status NPO Status: NPO Clears >2 hours, Solids >8 hours Anesthesia Plan Resuscitation Status: Full Code Anesthesia Technique: MAC Anesthesia Airway Planned: Natural Airway Monitors Used: Standard Monitors Preoperative Comments:: Currently on apixiban due to DVT last October.
[2021-08-20 07:47] VITALS: BMI 29.8
[2021-08-20] MEDS: Tetracaine 0.5% 4 ML BTL OD (08:12)
[2021-08-20] MEDS: Balanced Salt Soln.-PLUS 500 ML BAG (08:15)
[2021-08-20] MEDS: Duovisc Viscoelastic System EACH 1 EACH (08:15)
[2021-08-20] MEDS: Povidone-Iodine Ophth 30 ML BTL (08:16)
--- NOTE | 2021-08-20 08:41 | W.PM.DSUDISC ---
Discharge Plan Disposition Patient Disposition: HOME Condition: Good Discharge Details Attending Provider: Harrison Toscano Primary Care Provider: Albin Pulliam Home Meds and New Rx's Prescriptions: No Action apixaban 5 mg tablet 5 mg PO BID Qty: 180 1RF zinc 50 MG tablet 50 mg PO DAILY 0RF vitamin A palmitate 10,000 UNIT capsule 10,000 units PO DAILY 0RF ascorbic acid (vitamin C) [Vitamin C] 500 mg Tablet 1,000 mg PO BID Qty: 60 0RF cholecalciferol (vitamin D3) 25 mcg (1,000 unit) Tablet 4,000 units PO DAILY Qty: 30 0RF Lipotropic 333-333-100 mg Tablet 2 tab PO DAILY 0RF Discharge Instructions Stand Alone Forms: Post-op Topical Cataract, Wilfredo Ganey (DSU) Discharge Orders Discharge Orders: Discharge Order (Routine); Ordered 08/20/21 Ordered By: Harrison Toscano DS: Diagnosis Discharge Diagnosis (1) Nuclear sclerotic cataract of right eye: Status: Resolved (2) History of vitrectomy: Status: Resolved (3) History of detached retina repair: Status: Resolved
--- NOTE | 2021-08-20 08:42 | ROE_ITS ---
Date of service: 08/20/21 Time of Service: 08:43 Operative Note Operative Note DATE OF PROCEDURE: 08/20/21 PRE-OP DIAGNOSIS: Dense nuclear cataract, right eye Status post pars plana vitrectomy/endolaser/gas exchange, for retinal detachment, right eye, 01/2021 POST-OP DIAGNOSIS: same PROCEDURE: Cataract extraction using phacoemulsification with intraocular lens implant, right eye Insertion of capsular tension ring, right eye SURGEON: Harrison Toscano ANESTHESIA TYPE: Local By Surgeon and MAC Refer to Anesthesia Record ESTIMATED BLOOD LOSS: 0 PATHOLOGY: none sent COMPLICATIONS: None Patient was transported to: same day Patient's condition: stable Implants: [employer] Ray/LAKE Tecnis [id number] Morcher type 15A capsular tension ring Indications: Progressive visual loss due to cataract, right eye Findings: Severe zonular laxity Procedure Description: CATARACT SURGERY OPERATIVE REPORT PREOPERATIVE DIAGNOSIS: 1. Dense nuclear cataract, right eye 2. Status post pars plana vitrectomy/endolaser/gas exchange, for retinal detachment, right eye, 01/2021 POSTOPERATIVE DIAGNOSIS: Same OPERATION: 1. Cataract extraction using phacoemulsification with posterior chamber intraocular lens implant, right eye. IOL: IOL Operations Support Coordinator/Model: Ray [employer] Ray / LAKE Tecnis [id number] IOL Power: + 15.5 diopters IOL Serial Number: [id number] Optic Diameter: 6.0mm Haptic/Overall Diameter: 13.0mm PHACO INFO: Archie Centurion Vision System with OZil and Active Fluidics Cumulative Dispersed Energy (CDE): 24.93 seconds SURGEON: Harrison Toscano MD, INDU ANESTHESIA: Monitored Anesthesia Care (MAC), with local sub-tenon's anesthetic infiltration COMPLICATIONS: None SPECIMENS: None INDICATIONS FOR PROCEDURE: The patient is a 55-year-old gentleman who suffered a retinal detachment in the right eye in 2020. He underwent pars plana vitrectomy/endolaser/intraocular gas for repair. He has now developed a dense nuclear cataract in the right eye. The option of cataract surgery was offered to the patient and he wished to proceed. Patient understands the postoperative visual acuity will likely be limited by the presence of his pre-existing retinal detachment. PROCEDURE: The correct surgical eye was identified and marked as the right eye and the pupil was dilated in the preoperative area using mydriatics and cycloplegics. The dilated pupil size was 6.5 mm. Oral sedation was administered in the form of an Imprimis MKO Melt (midazolam 3mg/ketamine 25mg/ondansetron 2mg). The patient was brought to the operating room where cardiopulmonary monitoring was instituted and surgical time-out was performed, confirming the correct operative eye and IOL power. Topical anesthesia was administered and ophthalmic povidone-iodine 5% was instilled into the conjunctival fornices. Lidocaine gel was applied to the cornea and the frederick-ocular area was prepped with Betadine 10% solution and draped in the usual sterile fashion for intraocular surgery, including an aperture drape. A Tegaderm transparent film dressing was cut in half and used to cover the lashes and lid margins. Care was taken to sequester the lashes and lid margins under the Tegaderm dressing. A lid speculum was placed between the lids of the operative eye and the Archie LuxOR Revalia operating microscope was maneuvered into position. Therese scissors were then used to make a conjunctival buttonhole approximately 6mm posterior to the limbus in the inferonasal quadrant. Blunt dissection was carried out to expose bare sclera, and a blunt-tipped sub-tenon?s anesthesia cannula was introduced and passed posteriorly along the globe where non- preserved plain lidocaine was injected into posterior sub-Tenon?s space. A sideport knife was used to make a paracentesis port inferotemporally. Intraocular phenylephrine/lidocaine was injected into the anterior chamber. The anterior chamber was filled with viscoelastic. A 2.4mm keratome knife was used to create a half-thickness groove at the limbus and then to construct a three- plane near-clear corneal tunnel extending 2.0mm into clear cornea superiortemporally. A flap was raised on the anterior capsule and capsulorhexis forceps were used to complete a continuous curvilinear capsulorhexis of 5.0 mm. The capsule was noted to be quite thin with a deep anterior chamber and significant zonular laxity. Balanced salt solution was then used to perform cortical cleaving hydrodissection and nuclear hydrodelineation until the lens could be freely rotated within the capsular bag. The lens nucleus was then disassembled and removed within the capsular bag and iris plane using phacoemulsification. Cataract removal was challenging due to the dense cataract, deep chamber, and severe zonular laxity. Cortical material was removed using the I/A handpiece. The capsular bag was then inflated and the anterior chamber deepened with viscoelastic. A Morcher type 15A capsular tension ring was then inserted into the capsular bag without difficulty. The lens implant described above was inserted into the capsular bag using the LAKE [place] Injector. A Kuglen hook was used to dial the IOL into position. Residual viscoelastic was then removed first from posterior to the IOL, then from the anterior chamber using the I/A handpiece. The lens implant was noted to center nicely within the capsular bag. The incisions were stromally hydrated, and the anterior chamber was reformed using BSS. Then 0.5cc of moxifloxacin 1.0mg/ml were injected into the capsular bag and anterior chamber. The incisions were checked with a Weck spear and found to be secure. Several drops of ophthalmic povidone-iodine 5% were then applied to the eye followed by two drops of Imprimis combination prednisolone/moxifloxacin/nepafenac solution. The drapes were removed and a clear plastic protective eye shield was placed over the eye. The patient was then returned to Same Day Surgery in stable condition.
[2021-08-20 08:54] VITALS: BP 126/91; PULSE 88; RESP 16; TEMP 37.1; O2SAT 95
--- NOTE | 2021-08-20 08:58 | W.ANESPOSTOP ---
Postoperative Evaluation Date, Time and Location Date Performed: 08/20/21 Time Performed: 08:51 Patient Location: Day Surgery Unit Vital Signs Most Recent Imported Vital Signs: Most Recent Vital Signs Temp Pulse Resp BP Pulse Ox 37.1 C 88 16 126/91 H 95 08/20/21 08:54 08/20/21 08:54 08/20/21 08:54 08/20/21 08:54 08/20/21 08:54 Pain Score Most Recent Pain Score: Most Recent Pain Score Pain Level 0 08/20/21 08:54 Assessment Mental Status: Awake (Alert & Oriented to Patient Baseline) Airway and Respiratory Function: Patent airway with normal (patient baseline) respiratory exam Cardiovascular Function: Hemodynamically Stable Hydration Status: Adequately Hydrated Nausea & Vomiting: No Nausea or Vomiting Pain: Pt. Denies Any Pain Peripheral Nerve Block: Patient did not receive a nerve block
[2021-08-20 09:09] VITALS: BP 132/94; PULSE 80; RESP 16; TEMP 37; O2SAT 97
== END 2021-08-20 09:13 | disposition home or self-care (01) ==
PROVIDERS: PCP Nurse Practitioner Family; Visit Provider Ophthalmology
PROC: (CPT 66982; principal; 2021-08-20 08:15)
DX: H25.11 Age-related nuclear cataract, right eye (principal); H27 Other disorders of lens; H57.9 Unspecified disorder of eye and adnexa; K21.9 Gastro-esophageal reflux disease without esophagitis
CPT/HCPCS: 66982; V2632

== ENCOUNTER 2021-11-16 03:56 | Outpatient (CLI) | payer BC, SELFPAY | END 2021-11-16 03:57 | disposition home or self-care (01) | LOC: LOS 03:56 | PROVIDERS: PCP Nurse Practitioner Family; Visit Provider Nurse Practitioner Family ==

== ENCOUNTER 2021-11-17 02:43 | Outpatient (CLI) | payer BC, SELFPAY ==
[2021-11-17 13:26] LABS: Calculated LDL 127 mg/dL (<100); Cholesterol 197 mg/dL (<200); HDL Cholesterol 41 mg/dL (40-60); Triglyceride 145 mg/dL (<150)
== END 2021-11-17 02:44 | disposition home or self-care (01) ==
LOC: LOS 02:43
PROVIDERS: PCP Nurse Practitioner Family; Visit Provider Nurse Practitioner Family
DX: Z13.220 Encounter for screening for lipoid disorders (principal)
CPT/HCPCS: 36415; 80061

== ENCOUNTER 2021-11-29 10:15 | Day surgery (SDC) | payer BC, SELFPAY ==
--- NOTE | 2021-11-29 06:24 | W.COLOREPORT ---
Colonoscopy Report Date of procedure: 11/29/21 Pre-op diagnosis general: Colon Cancer Screening Post-op diagnosis procedure note: same Procedure: Colonoscopy Surgeon: Rachel Falcon Anesthesia Type: General:No Airway Estimated blood loss (mL): 0 Pathology: none sent Complications: None Disposition: same day Indications: The patient is here for Colonoscopy pre-op. His last screening was in 2009 and was unremarkable.? He has no family history of colon cancer. He has not had any bowel habit changes. -Discussed colonoscopy bowel prep as well as the procedure. Discussed possible complications of the procedure to include bleeding, pain, perforation, missed small lesion/polyp, sore throat, aspiration and adverse reaction to the medications. Questions were answered to patient?s satisfaction. No guarantees were implied or given.? Prep: Miralax/Dulcolax Procedure Start Time: 12:36 Procedure End Time: 13:06 Retraction Time: 21 minutes Findings: Normal colon Procedure Description: After informed consent was obtained the patient was taken to the procedure room and placed in a left decubitous position. Monitors were applied and a time out was done. The patients name, date of , procedure, allergies to medications and metal in their body was reviewed. The patient was then sedated. Once sedated and comfortable a rectal exam was done. External exam was normal. Internal exam revealed a normal sphincter tone and no palpable masses. The scope was then introduced and retro-flexed. No internal hemorrhoids, polyps or masses were identified on retro-flexion. The scope was then advanced to the cecum without difficulty. The ileocecal vlave and appendiceal orifice were identified. The prep was good. The scope was then slowly retracted over 21 minutes back into the rectum. There were no polyps. There was no diverticulosis noted. The scope was removed and the patient was woken up and taken back to Same day surgery in stable condition. The patient tolerated the procedure well and there were no immediate complications. Follow up: The patient should follow up in 10 years unless they develop changes in bowel habits or other new gastrointestinal complaints.
--- NOTE | 2021-11-29 06:26 | W.PM.DSUDISC ---
Discharge Plan Disposition Patient Disposition: HOME Condition: Good Discharge Details Reason For Visit: colonoscopy Attending Provider: Rachel Falcon Primary Care Provider: Albin Pulliam Home Meds and New Rx's Prescriptions: Continued Eliquis 5 mg tablet 5 mg PO BID zinc 50 MG tablet 50 mg PO DAILY vitamin A palmitate 10,000 UNIT capsule 10,000 units PO DAILY ascorbic acid (vitamin C) [Vitamin C] 500 mg Tablet 1,000 mg PO BID Qty: 60 0RF cholecalciferol (vitamin D3) 25 mcg (1,000 unit) Tablet 4,000 units PO DAILY Qty: 30 0RF Discontinued bisacodyl [Dulcolax (bisacodyl)] 5 mg tablet,delayed release (DR/EC) 5 mg PO ONCE Qty: 4 0RF Rx Instructions: Take according to provider's instructions for colonoscopy prep. polyethylene glycol 3350 17 gram/dose powder 17 g PO ONCE Qty: 238 0RF Rx Instructions: To be taken as directed by prescriber's office for colonoscopy prep. Discharge Instructions Additional Instructions: Findings: Normal Follow up: 10 years Please call if you develop: fevers >101.5 Nausea or Vomiting Abdominal pain that is not transient Rectal bleeding that is more then a tbsp A hard abdomen and inability to pass gas DAY SURGERY UNIT POST ENDOSCOPY INSTRUCTIONS Instructions for everyone who is given Anesthesia: For your safety, please do the following for the next 24 Hours: a. Do not drive or operate dangerous equipment b. Do not drink alcohol beverages or use any recreational drugs for the first 24 hours or while taking pain medications. The medications in your body may have a reaction that can be dangerous. c. Do not make any important decisions or sign any important papers 1. Generally there are no restrictions on your activity after a day or so has gone by, but you may feel a bit fatigued for a few days. 2. After you arrive home you may have a light meal and return to a normal diet as you can tolerate it without feeling sick to your stomach. 3. After surgery, you may feel pain or discomfort. This should be only transient, but if it persists please contact your doctor. 4. If there are any questions regarding the findings of your procedure, please feel free to contact your doctor. 6. If you are unable to contact your doctor with a problem, contact the hospital at [phone]. 7. Continue all your regular medications unless directed otherwise. I understand the above instructions and have no questions. Signature of Patient or Responsible Adult Escort Date/Time Name of Responsible Adult Escort Signature of Nurse Date/Time Activity:: Activity as Tolerated Diet:: As Tolerated Discharge Orders Discharge Orders: Discharge Order (Routine); Ordered 11/29/21 Ordered By: Rachel Falcon
--- NOTE | 2021-11-29 06:35 | W.ANESPRE ---
General Info Date of Service Date Performed: 11/29/21 Height: 6 ft 1 in Weight: 102.058 kg Body Mass Index (BMI): 29.7 Surgical Procedure: Operation Date: 11/29/21 11:35 Proposed Procedure Side Surgeon p Colonoscopy Rachel Falcon MD Meds Allergies and Home Medications Allergies Allergy/AdvReac Type Severity Reaction Status Date / Time No Known Allergies Allergy Verified 11/29/21 10:40 Home Medication Medication Instructions Recorded vitamin A palmitate 10,000 unit 10,000 units PO DAILY 01/02/14 capsule zinc 50 mg tablet 50 mg PO DAILY 01/02/14 ascorbic acid (vitamin C) 500 mg 1,000 mg PO BID #60 tabs 08/28/20 tablet (Vitamin C) cholecalciferol (vitamin D3) 25 4,000 units PO DAILY #30 tabs 08/28/20 mcg (1,000 unit) tablet apixaban 5 mg tablet (Eliquis) 5 mg PO BID 11/19/21 Current Visit Medications: Current Medications Generic Name Dose Route Start Last Admin Trade Name Freq PRN Reason Stop Dose Admin Hyoscyamine Sulfate 0.125 mg 11/29/21 06:26 Hyoscyamine 0.125 Mg Sl/Oral/Chew SL DIRECTED PRN Ondansetron HCl 4 mg 11/29/21 06:26 Ondansetron 4 Mg/2 Ml Vial IVP Q4H PRN PRN Nausea / Vomiting PFSH Active Problems Active Problems: Problem Status Onset Code Deep vein thrombosis (DVT) I82.409 Medical History Medical History Anxiety Biliary colic Cataract Cholelithiasis COVID-19 08/11/20 Dyspepsia GERD (gastroesophageal reflux disease) (~2009) No pertinent past medical history Pneumonia due to COVID-19 virus Thyroid nodule Surgical History Surgical History History of colonoscopy (~04/12/10) hyperplastic polyp History of detached retina repair History of esophagogastroduodenoscopy (EGD) (~08/26/09) with biopsies History of vitrectomy Nuclear sclerotic cataract of right eye S/P cholecystectomy [place] teeth removed Tobacco Smoking/Tobacco Use Status: Never Passive smoking exposure: No Alcohol Alcohol Intake: current Alcohol intake frequency: a few times a week Alcohol type: beer Substance Use Substance use: Never Substance use type: does not use Vital Signs and Lab Results Lab Results Blood Type / Crossmatch: No Data to Display Complete Blood Count: No Data to Display Complete Metabolic Panel: No Data to Display Liver Function Panel: No Data to Display Coagulation Panel: No Data to Display Cardiac Panel: No Data to Display Arterial Blood Gas: No Data to Display Venous Blood Gas: No Data to Display Pancreas Panel: No Data to Display Thyroid Panel: No Data to Display Infectious Disease: No Data to Display Blood Cultures: No Data to Display Toxicology Panel: No Data to Display Imaging and Studies Imaging and Studies Study information below may be from another EMR and interpreted by another provider. Please see original notes in EMR for more complete details. EKG Summary: 08/21/20: Sinus rhythm...normal P axis, V-rate 60- 99 Inferior infarct, old...Q >35mS, II III aVF Anesthesia Assessment and Plan Anesthesia History Personal History: No History of Anesthesia Complications Family History: No Family History of Anesthesia Complications Exercise Tolerance Exercise Tolerance: Metabolic Equivalents>4 Pertinent Negatives Pertinent Negatives: No Symptoms of GERD (Rare with certain foods), No Major Cardiovascular Symptoms or Complaints, No Major Pulmonary Symptoms or Complaints and No History of CVA/TIA Cardiac & Pulmonary Exam Cardiac Exam: Normal S1/S2 Heart Sounds Pulmonary Exam: Clear Bilateral Breath Sounds Implantable Cardiac Device Does patient have a Pacemaker or an ICD?: No Airway Exam Known Difficult Airway: No Mallampati Class: 2 Mouth Opening: Normal (> 3cm) Thyromental Distance: Greater than 3 cm Neck Range of Motion: Full ROM Neck Circumference: Normal Teeth Condition: Normal Dentition ASA Classification ASA Score: ASA 2 Emergency Case?: No NPO Status NPO Status: NPO Clears >2 hours, Solids >8 hours Anesthesia Plan Resuscitation Status: Full Code Anesthesia Technique: General Anesthesia Airway Planned: Natural Airway Monitors Used: Standard Monitors Preoperative Comments:: 55 yo male for colo Sig PMHx: anxiety, GERD, retinal detachment, DVT DVT and pneumonia coincided with COVID Spring 2020
[2021-11-29 10:30] VITALS: BP 123/91; PULSE 88; RESP 19; TEMP 36.7; O2SAT 97
[2021-11-29] MEDS: Lactated Ringers 1,000 ML 80 ML IV (11:20)
[2021-11-29 13:15] VITALS: BP 121/89; PULSE 65; RESP 16; TEMP 36.5; O2SAT 98
[2021-11-29 13:37] VITALS: BMI 29.7
--- NOTE | 2021-11-29 13:37 | W.ANESPOSTOP ---
Postoperative Evaluation Date, Time and Location Date Performed: 11/29/21 Time Performed: 13:37 Patient Location: Day Surgery Unit Vital Signs Most Recent Imported Vital Signs: Most Recent Vital Signs Temp Pulse Resp BP Pulse Ox 36.5 C 65 16 121/89 98 11/29/21 13:15 11/29/21 13:15 11/29/21 13:15 11/29/21 13:15 11/29/21 13:15 Pain Score Most Recent Pain Score: Most Recent Pain Score Pain Level 0 11/29/21 10:30 Assessment Mental Status: Awake (Alert & Oriented to Patient Baseline) Airway and Respiratory Function: Patent airway with normal (patient baseline) respiratory exam Cardiovascular Function: Hemodynamically Stable Hydration Status: Adequately Hydrated Nausea & Vomiting: No Nausea or Vomiting Pain: Pt. Denies Any Pain Peripheral Nerve Block: Patient did not receive a nerve block
[2021-11-29 13:42] VITALS: BP 128/89; PULSE 74; RESP 18; TEMP 36.3; O2SAT 95
== END 2021-11-29 14:10 | disposition home or self-care (01) ==
PROVIDERS: PCP Nurse Practitioner Family; Visit Provider Surgery
PROC: 0DJD8ZZ Inspection of Lower Intestinal Tract, Via Natural or Artificial Opening Endoscopic (ICD-10-PCS; CPT 45378; principal; 2021-11-29 11:30)
DX: Z12.11 Encounter for screening for malignant neoplasm of colon (principal); K21.9 Gastro-esophageal reflux disease without esophagitis; F41.9 Anxiety disorder, unspecified
CPT/HCPCS: 45378; J2704

== ENCOUNTER → 2022-03-15 01:56 | Outpatient (CLI) | payer BC, SELFPAY ==
--- NOTE | 2022-03-15 07:00 | DI.US_ITS ---
Exam(s) US NEEDLE LOCAL OTHER WO RAD EXAM: US NEEDLE LOCAL OTHER WO RAD CLINICAL HISTORY: thyroid nodules,e04.1, ultrasound guided biopsy. COMPARISON: US US THYROID from 12/09/2021 TECHNIQUE: Ultrasound guidance was provided for ultrasound-guided FNA of a left thyroid lobe nodule. By the ENT physician. The radiologist was not present for this ultrasound-guided procedure. FINDINGS: Images revealed the FNA needle to be in the nodule. IMPRESSION: Left thyroid nodule ultrasound-guided FNA. DATA REPOSITORY:
--- NOTE | 2022-03-15 11:30 | PAPNONF_PTH ---
PATIENT: Shefali Adorno LOC: [facility] U#:[id number] AGE/SX: 59/M ROOM: RE03/15/[address]: Brian Kiran MD : 1965 BED: DIS: SPEC #: [id number] RECD: 03/15/22 12:49 STATUS: ARIELLA REQ #: [id number] KAT: 03/15/22 11:[address]: Brian Kiran DEPT: [facility] Cytology RECD BY: Amada Wang ENTERED: 03/15/22 12:50 SP TYPE: DAVIN WHALEY DR: Albin Pulliam, KASANDRA Tissues: 1 - BODY FLUID CYTO-FINE NEEDLE ASPIRATE[facility] Procedures: BODY FLUID CYTO-FINE NEEDLE ASPIRATE[facility] Comments: [id number] (PATH FNA CONSULT) (REFRIDERATED)
--- NOTE | 2022-03-15 16:33 | W.PROCNOTE ---
Date of service: 03/15/22 Time of Service: 11:00 Procedure Note Date of procedure: 03/15/22 Procedure: Ultrasound-guided FNA, left thyroid nodule, pathology present Surgeon/Proceduralist/Physician: Brian Kiran Procedure Indications: Patient with a left-sided TR 4 lesion in the background of multinodular thyroid. This meets criteria for biopsy. Options were explained to the patient he wished to proceed. Risks and benefits were reviewed. Consent was filled out and signed. Procedure Description: The patient was positioned in a supine position and prepped and draped in appropriate fashion. Ultrasound was used to localize that TR 4 lesion on the left, and then 1% lidocaine with 1/100,000 epinephrine injected over the mass into the skin and subcutaneous tissues. Multiple passes were made into the nodule using a 25-gauge needle. Pathology assessed for cellular adequacy and felt that there was cellular adequacy. 2 passes were made in addition to this for potential Afirma. Sterile dressing was applied after ensuring adequate hemostasis. The patient was then allowed to stand, and demonstrated stable vitals. He will remove the bandage in a couple of hours and not replace it. He will call with any signs of infection. He will call if he does not hear from me with regard to the results of the biopsy within 1 week. He may use ibuprofen or Tylenol for any discomfort. He had no further questions. He is comfortable with the plan.
== END ==
PROVIDERS: PCP Nurse Practitioner Family; Visit Provider Otolaryngology
DX: E04.1 Nontoxic single thyroid nodule (principal)
CPT/HCPCS: 10005; 76942; 88104

== ENCOUNTER → 2023-06-06 03:01 | Outpatient (CLI) | payer BC, SELFPAY ==
--- NOTE | 2023-06-06 07:30 | DI.US_ITS ---
Exam(s) US NEEDLE LOCAL OTHER WO RAD EXAM: TR 5, left thyroid lobe inferior pole,ultrasound guided bx,e04.2 COMPARISON: US US NEEDLE LOCAL OTHER WO RAD from 03/15/2022 TECHNIQUE: Ultrasound performed using standard protocol. FINDINGS: Sonography was provided for Dr. Kiran during the performance of a left thyroid biopsy. Please refe r to the procedure report for complete details. DATA REPOSITORY:
--- NOTE | 2023-06-06 13:00 | PAPNONF_PTH ---
PATIENT: Shefali Adorno LOC: [facility] Mckeon#:[id number] AGE/SX: 59/M ROOM: RE06/06/[address]: Brian Kiran MD : 1965 BED: DIS: SPEC #: [id number] RECD: 06/06/23 13:14 STATUS: ARIELLA REQ #: [id number] KAT: 06/06/23 13:[address]: Brian Kiran DEPT: [facility] Cytology RECD BY: Amada Wang ENTERED: 06/06/23 13:15 SP TYPE: DAVIN WHALEY DR: Albin Pulliam, PANTRY CHEF Tissues: 1 - BODY FLUID CYTO-FINE NEEDLE ASPIRATE-[facility] Procedures: BODY FLUID CYTO-FINE NEEDLE ASPIRATE-[facility] Comments: [id number] (PATH FNA CONSULT) (REFRIGERATED)
--- NOTE | 2023-06-06 13:19 | W.PROCNOTE ---
Date of service: 06/06/23 Time of Service: 13:19 Procedure Note Date of procedure: 06/06/23 Procedure: Ultrasound-guided FNA, left thyroid nodule, pathology present Procedure Diagnosis: left thyroid nodule Procedure Indications: The patient has a left thyroid nodule that meets criteria for biopsy. Options were explained to the patient regarding further management. He elected to undergo the above procedure. Consent was filled out and signed prior to surgery. Risks including bleeding, infection, failure to obtain an answer, and need for further treatment were discussed at length. Procedure Description: The patient was positioned in the supine position and prepped and draped in appropriate fashion. Ultrasound was used to localize the nodule of concern on the left. 1% lidocaine with 1/100,000 epinephrine was injected in the skin and subcutaneous tissues overlying the nodule and then ultrasound used to guide the needle into the thyroid nodule. The nodule was quite firm and calcific. The needle was actually fairly hard to visualize on ultrasound. Multiple passes were made into the thyroid nodule, with no obvious cellularity. After 3 passes were made, options were explained to the patient regarding further management. I recommended that we stop here and wait to see if there is adequate cellularity in the CytoLyt prep, but explaining that there may not be. He concurred. As such, after ensuring adequate hemostasis, a sterile dressing was applied and the patient was allowed to sit and then stand and ambulate. His vital signs remained stable. He will remove the bandage today and not replace it. He will call with any signs of infection. He will use ibuprofen or Tylenol for discomfort. He will call if he does not hear from me within 1 week with regard to pathology results.
== END ==
PROVIDERS: PCP Nurse Practitioner Family; Visit Provider Otolaryngology
DX: E04.2 Nontoxic multinodular goiter (principal)
CPT/HCPCS: 10005; 76942; 88104

== ENCOUNTER 2023-11-27 03:49 | Outpatient (CLI) | payer BC, SELFPAY ==
[2023-11-27 12:32] LABS: Hemoglobin A1C 5.7 % (<5.7)
[2023-11-27 12:40] LABS: Calculated LDL 100 mg/dL (<100); Cholesterol 162 mg/dL (<200); HDL Cholesterol 47 mg/dL (40-60); Triglyceride 78 mg/dL (<150)
[2023-11-27 13:10] LABS: FREE T4 1.05 ng/dL (0.76-1.46)
[2023-11-27 17:48] LABS: PSA, Screening 1.3 ng/mL (<=3.5)
== END 2023-11-27 03:50 | disposition home or self-care (01) ==
LOC: LOS 03:49
PROVIDERS: PCP Nurse Practitioner Family; Visit Provider Nurse Practitioner Family
DX: Z12.5 Encounter for screening for malignant neoplasm of prostate (principal); E04.2 Nontoxic multinodular goiter; Z13.220 Encounter for screening for lipoid disorders; Z13.1 Encounter for screening for diabetes mellitus
CPT/HCPCS: 36415; 80061; 84153; 83036; 84439; 84443